=== PATIENT | female | born 1935 | race Caucasian/White ===

== ENCOUNTER 2016-07-20 15:07 | Inpatient (IN) | payer OTHER, MEDICARE ==
[2016-07-20 15:36] VITALS: BMI 29.0
[2016-07-20] MEDS ORDERED: SODIUM CHLORIDE 1,000 ML IV STA (15:38)
--- NOTE | 2016-07-20 15:40 | PDOC ---
History of Present Illness - History of Present Illness Initial Comments: 07/20/16 16:31 The patient is a 80 year old female with a past medical hx of CAD s/p stent ( 2013), IBD, Afib, hypertension, hyperlipidemia, stage 3 prolapsed hemorrhoids, UTIs, and interstitial cystitis who presents to the ED from [facility] for evaluation of abdominal pain, and hypotension. She was last seen here on for abdominal pain and was admitted until 06/10 for proctitis. The patient states she has been experiencing chronic abdominal pain with diarrhea since before she was discharged from the hospital. She reports she has not improved since being discharged from the hospital. Patients sister states her blood pressure was 78/47 a few days ago and her legs were retaining water. Patients legs were elevated and her blood pressure increased slightly. Per patients sister, she has been experiencing urinary retention and had a frost placed yesterday.The patient states she has been feeling lousy for 8 months and her sister states she has lost over 30 pounds in five months because her appetite has decreased. The patient states she has been feeling weak and currently participating in PT for her difficulty walking. The patient denies chest pain, SOB, cough, palpitations, headache, dizziness The patient denies nausea/vomiting, melena, hematochezia The patient denies fever, chills Allergies: linaclotide Past surgical history: cholecystectomy (1993) PCP - Dr. Bhatt <Ruma Arora - Last Filed: 07/20/16 16:50> - General History Source: Patient Exam Limitations: No Limitations <Steve Griffiths - Last Filed: 07/25/16 08:53> - General Chief Complaint: Pain Stated Complaint: HYPOTENSION Time Seen by Provider: 07/20/16 15:23 Past History <Ruma Arora - Last Filed: 07/20/16 16:50> - Past Medical History Anemia: No Asthma: No Cancer: No Cardiac Disorders: Yes (CAD) CVA: No COPD: No CHF: No Dementia: No Diabetes: No GI Disorders: Yes (REFLUX, HIATAL HERNIA, /rectal ulcerations/Colitis) Disorders: Yes (INTERSTITIAL CYSTITIS, INCONTINENCE) HTN: Yes (DX 2002) Hypercholesterolemia: Yes (DX 2002) Liver Disease: No Psychiatric Problems: Yes (depression) Seizures: No Thyroid Disease: No - Surgical History Abdominal Surgery: No Cardiac Surgery: Yes (STENT 2013) Cholecystectomy: Yes (LAP [id number] BILE DUCT) GI Surgery: Yes (RECTAL FISTULA) Lung Surgery: No Neurologic Surgery: No Orthopedic Surgery: Yes (LEFT KNEE REPLACEMENT) - Psycho/Social/Smoking Cessation Hx Anxiety: No Suicidal Ideation: No Smoking History: Former smoker Have you smoked in the past 12 months: No Number of Cigarettes Smoked Daily: 60 If you are a former smoker, when did you quit?: YEARS AGO Information on smoking cessation initiated: No Hx Alcohol Use: No Drug/Substance Use Hx: No Substance Use Type: None Hx Substance Use Treatment: No <TundeSteve - Last Filed: 07/25/16 08:53> - Past Medical History Allergies/Adverse Reactions: Allergies Allergy/AdvReac Type Severity Reaction Status Date / Time linaclotide [From Linzess] Allergy Intermediate Severe Verified 07/20/16 15:36 diarrhea Home Medications: Ambulatory Orders Aa/Hydrolyzed Collagen, Whey [Lps Neutral Flavor Liquid] 30 ml PO BID 07/20/16 Acetaminophen [Pain Relief] 650 mg PO QID 07/20/16 Acidoph/L.bulg/Bif.b/S.thermop [Bacid Caplet] 1 each PO BID 07/20/16 Ascorbic Acid [Vitamin C -] 500 mg PO DAILY 07/20/16 Atorvastatin Ca [Lipitor] 10 mg PO HS 07/20/16 Calcium Carbonate/Vitamin D3 [Oyster Shell 500-Vit D3 200 Tb] 1 each PO DAILY Collagenase Clostridium Hist. [Santyl] 1 applic TP BID 07/20/16 Dextran 70/Hypromellose/Pf [Artificial Tears Drops] 1 each OP QID 07/20/16 Ferrous Sulfate [Feosol] 325 mg PO BID 07/20/16 Mesalamine Suppository [Canasa Suppository] 1,000 mg RC HS 07/20/16 Mesalamine [Asacol Hd -] 1,600 mg PO TID 07/20/16 Mirtazapine [Remeron -] 15 mg PO HS 07/20/16 Nystatin Powder [Nystop Topical Powder -] 15 gm TP TID 07/20/16 Tamsulosin HCl [Flomax] 0.4 mg PO DAILY 07/20/16 Review of Systems - Review of Systems Able to Perform ROS?: Yes Comments:: 07/20/16 16:32 CONSTITUTIONAL: +Weakness. No reported: Fever, Chills, Diaphoresis, Malaise, Loss of Appetite HEENT: No reported: Rhinorrhea, Nasal Congestion, Throat Pain, Throat Swelling, Difficulty Swallowing, Mouth Swelling, Ear Pain, Eye Pain, Visual Changes CARDIOVASCULAR: No reported: Chest Pain, Syncope, Palpitations, Irregular Heart Rate, Lightheadedness, Peripheral Edema RESPIRATORY: No reported: Cough, Shortness of Breath, SOB with Exertion, Orthopnea, Wheezing , Stridor, Hemoptysis GASTROINTESTINAL: +Diarrhea, abdominal pain. No reported: Abdominal Distension, Nausea, Vomiting, Constipation, Melena, Hematochezia GENITOURINARY: +Urinary retention. No reported: Dysuria, Frequency, Urgency, Flank Pain, Genital Pain MUSCULOSKELETAL: No reported: Myalgia, Arthralgia, Joint Swelling, Back pain, Neck Pain SKIN: No reported: Rash, Itching, Pallor HEMATOLOGIC/IMMUNOLOGIC: No reported: Easy Bleeding, Easy Bruising, Lymphadenopathy, Frequent infections ENDOCRINE: +30 lb weight loss. No reported: Unexplained Weight Gain, Heat Intolerance, Cold Intolerance NEUROLOGIC: No reported: Headache, Focal Weakness, Paresthesias, Vertigo, Lightheadedness, Unsteady Gait, Seizure, Mental Status Changes, Incontinence PSYCHIATRIC: No reported: Anxiety, Depression <Ruma Arora - Last Filed: 07/20/16 16:50> *Physical Exam - Vital Signs Last Vital Signs Temp Pulse Resp BP Pulse Ox 97.6 F 88 24 106/80 92 L 07/20/16 15:23 07/20/16 15:23 07/20/16 15:23 07/20/16 15:23 07/20/16 15:23 - Physical Exam Comments: 07/20/16 16:11 GENERAL: The patient is awake, alert, and fully oriented, Nontoxic - in no acute distress. HEAD: Normocephalic, atraumatic. EYES: extraocular movements intact, sclera anicteric, conjunctiva clear. ENT: Normal voice,Moist mucous membranes. NECK: Normal range of motion, supple LUNGS: Breath sounds equal, clear to auscultation bilaterally. No wheezes, no rhonchi, no rales. HEART: Regular rate and rhythm, normal S1 and S2 without murmur, rub or gallop. ABDOMEN: slightly distended, diffusely tender to palpation EXTREMITIES:b/l pitting edmea on LE, no erythema, induration, warmth, no calf tenderness NEUROLOGICAL: No facial assymetry, Normal speech, PSYCH: Normal mood, normal affect. SKIN: Warm, Dry, normal turgor, <Ruma Arora - Last Filed: 07/20/16 16:50> - Vital Signs Last Vital Signs Temp Pulse Resp BP Pulse Ox 97.6 F 88 24 106/80 92 L 07/20/16 15:23 07/20/16 15:23 07/20/16 15:23 07/20/16 15:23 07/20/16 15:23 <Steve Griffiths - Last Filed: 07/25/16 08:53> Heart Score/ECG Review - ECG Impressions Comment:: 07/20/16 16:29 Twelve-lead EKG was performed and reviewed by me. Irregularly irregular Rate of 111 <Steve Griffiths - Last Filed: 07/25/16 08:53> ED Treatment Course - LABORATORY CBC & Chemistry Diagram: 07/20/16 15:44 07/20/16 15:44 <Ruma Arora - Last Filed: 07/20/16 16:50> - LABORATORY CBC & Chemistry Diagram: 07/23/16 10:15 07/23/16 10:15 - RADIOLOGY Radiology Studies Ordered: Category Date Time Status CHEST X-RAY PORTABLE* [RAD] Stat Radiology 07/20/16 15:38 Ordered <Steve Griffiths - Last Filed: 07/25/16 08:53> Medical Decision Making - Medical Decision Making 07/20/16 15:40 80y F hx CAD s/p stent (2013), IBD, Afib, hypertension, hyperlipidemia, stage 3 prolapsed hemorrhoids, UTIs, and interstitial cystitis, sent by [facility] for evaluation of hypotension. The pts BP was low 70/40s - sent to ED for evaluation - on presentation pts BP improved to 106/80. pts complaining of abd pain and diarrhea, not significantly different from previous hospitalization, but also endorsed urinary retrention and had a frost placed. on exam pt has b/ l pitting edmea in LE as well as diffuse tenderness to the abdomen. will give gentle hydration for bp, bp improved from NH but still not at baseline. pt afebrile here, but will r/o sources of infection will discuss with PMD A portion of this note was documented by scribe services under my direction. I have reviewed the details of the note, within reason, and agree with the documentation with the following case summary and management plan written by me 07/20/16 17:49 The case was signed out to dr. chahal to fu with results and reasesss the patient. <Steve Griffiths - Last Filed: 07/25/16 08:53> *DC/Admit/Observation/Transfer - Attestations Scribe Attestion: 07/20/16 16:11 Documentation prepared by Ruma Arora, acting as bilingual medical receptionist for Steve Griffiths MD, /DO. <Ruma Arora - Last Filed: 07/20/16 16:50> <Steve Griffiths - Last Filed: 07/25/16 08:53> Diagnosis at time of Disposition: UTI (urinary tract infection), Proctitis, Hypotension - Referrals
[2016-07-20 16:26] LABS: BASOPHIL 0.4 % (0-2.0); EOSINOPHIL 1.6 % (0-4.5); MCH 29.7 pg (25.7-33.7); MCHC 33.5 g/dl (32.0-36.0); MEAN CELL VOLUME 88.6 fl (80-96); NEUTROPHILS 65.6 % (42.8-82.8); PLATELET COUNT 464 K/MM3 (134-434); WHITE BLOOD COUNT 7.4 K/mm3 (4.0-10.0)
[2016-07-20 16:40] LABS: URINE APPEARANCE CLOUDY; URINE BILIRUBIN NEGATIVE (NEGATIVE); URINE COLOR AMBER; URINE GLUCOSE (UA) NEGATIVE (NEGATIVE); URINE KETONE NEGATIVE (NEGATIVE); URINE NITRITE NEGATIVE (NEGATIVE); URINE UROBILINOGEN NEGATIVE E.U./dl (0.2-1.0)
[2016-07-20 16:42] LABS: URINE BLOOD 1+ (NEGATIVE); URINE LEUK ESTERASE 3+ (NEGATIVE); URINE PROTEIN 2+ (NEGATIVE)
[2016-07-20 16:48] LABS: INR 1.28 (0.82-1.09); PROTHROMBIN TIME (PATIENT) 14.2 SEC (9.98-11.88); URINE BACTERIA MODERATE /hpf (NONE SEEN); URINE RBC 117 /hpf (0-3); URINE WBC 1229 /hpf (3-5); YEAST RARE
[2016-07-20 16:49] LABS: VENOUS BLOOD GAS HCO3 21.9 meq/L (22-29); VENOUS PH 7.38 (7.31-7.41)
[2016-07-20 16:51] LABS: ACTIVATED PTT 34.4 SECONDS (26.9-34.4)
[2016-07-20 17:11] LABS: ALBUMIN 1.4 g/dl (3.4-5.0); ANION GAP 11 (8-16); BILIRUBIN,TOTAL 0.3 mg/dL (0.2-1.0); CALCIUM 7.7 mg/dL (8.5-10.1); CO2 23 mmol/L (21-32); CREATININE 0.8 mg/dL (0.55-1.02); GLUCOSE,RANDOM 95 mg/dL (74-106); SGPT/ALT 40 U/L (12-78); TOT PROT 5.7 g/dl (6.4-8.2)
[2016-07-20 17:13] LABS: ALK PHOS 196 U/L (45-117); TROPONIN I < 0.02 ng/ml (0.00-0.05)
[2016-07-20 17:29] LABS: SGOT/AST 49 U/L (15-37)
[2016-07-20] MEDS ORDERED: SULFAMETHOXAZOLE/TRIMETHOPRIM 800MG/160MG D.S. TABLET PO ONE (17:41)
[2016-07-20] MEDS ORDERED: SULFAMETHOXAZOLE/TRIMETHOPRIM 800MG/160MG D.S. TABLET ONE (18:10)
[2016-07-20] MEDS ORDERED: GENTAMICIN INJECTION 80 MG in DEXTROSE 5%-WATER - 250 ML IVPB SCH (19:30)
[2016-07-20] MEDS ORDERED: GENTAMICIN 80 MG PREMIXED IVPB 100 ML IVPB ONE (19:53)
--- NOTE | 2016-07-20 20:06 | PDOC ---
*Physical Exam - Vital Signs Last Vital Signs Temp Pulse Resp BP Pulse Ox 97.6 F 103 H 24 78/55 98 07/20/16 15:23 07/20/16 19:20 07/20/16 19:20 07/20/16 19:20 07/20/16 19:20 ED Treatment Course - LABORATORY CBC & Chemistry Diagram: 07/20/16 15:44 07/20/16 15:44 - ADDITIONAL ORDERS Additional order review: Laboratory Results 07/20/16 07/20/16 07/20/16 18:45 16:21 15:44 INR PTT (Actin FS) VBG pH 7.38 POC VBG pCO2 37.6 L POC VBG pO2 27.4 L Sodium Potassium Chloride Carbon Dioxide Anion Gap BUN Creatinine Creat Clearance w eGFR Random Glucose Lactic Acid 1.590 Calcium Total Bilirubin AST ALT Alkaline Phosphatase Creatine Kinase Troponin I Total Protein Albumin Urine Color Urine Appearance Urine pH Ur Specific Webster Urine Protein Urine Glucose (UA) Urine Ketones Urine Blood Urine Nitrite Urine Bilirubin Urine Urobilinogen Ur Leukocyte Esterase Urine RBC Urine WBC Ur Epithelial Cells Urine Bacteria Urine Yeast Blood Type Cancelled Antibody Screen Cancelled Spec Expiration Date Cancelled 07/20/16 07/20/16 07/20/16 15:44 15:44 15:44 INR PTT (Actin FS) VBG pH POC VBG pCO2 POC VBG pO2 Sodium 136 Potassium 4.4 Chloride 102 D Carbon Dioxide 23 Anion Gap 11 BUN 22 H D Creatinine 0.8 Creat Clearance w eGFR Y Random Glucose 95 D Lactic Acid 2.127 H* Calcium 7.7 L Total Bilirubin 0.3 AST 49 H D ALT 40 D Alkaline Phosphatase 196 H D Creatine Kinase 87 Troponin I < 0.02 Total Protein 5.7 L Albumin 1.4 L Urine Color Rachael Urine Appearance Cloudy Urine pH 5.0 Ur Specific Webster 1.020 Urine Protein 2+ H Urine Glucose (UA) Negative Urine Ketones Negative Urine Blood 1+ H Urine Nitrite Negative Urine Bilirubin Negative Urine Urobilinogen Negative Ur Leukocyte Esterase 3+ H Urine RBC 117 Urine WBC 1229 Ur Epithelial Cells Rare Urine Bacteria Moderate Urine Yeast Rare Blood Type Antibody Screen Spec Expiration Date 07/20/16 15:44 INR 1.28 H PTT (Actin FS) 34.4 VBG pH POC VBG pCO2 POC VBG pO2 Sodium Potassium Chloride Carbon Dioxide Anion Gap BUN Creatinine Creat Clearance w eGFR Random Glucose Lactic Acid Calcium Total Bilirubin AST ALT Alkaline Phosphatase Creatine Kinase Troponin I Total Protein Albumin Urine Color Urine Appearance Urine pH Ur Specific Webster Urine Protein Urine Glucose (UA) Urine Ketones Urine Blood Urine Nitrite Urine Bilirubin Urine Urobilinogen Ur Leukocyte Esterase Urine RBC Urine WBC Ur Epithelial Cells Urine Bacteria Urine Yeast Blood Type Antibody Screen Spec Expiration Date 07/20/16 15:44 RBC 3.65 MCV 88.6 MCHC 33.5 RDW 17.0 H D MPV 7.0 L Neutrophils % 65.6 Lymphocytes % 20.5 D Monocytes % 11.9 H Eosinophils % 1.6 Basophils % 0.4 - RADIOLOGY Radiology Studies Ordered: Category Date Time Status ABDOMEN & PELVIS CT WITH CONTR [CT] Stat CT Scan 07/20/16 17:40 Completed - Medications Given in the ED: ED Medications Discontinued Medications Generic Name Dose Route Start Last Admin Trade Name Freq PRN Reason Stop Dose Admin Sodium Chloride 1,000 mls @ 1,000 mls/hr 07/20/16 15:38 07/20/16 16:35 Normal Saline - IV 07/20/16 16:37 1,000 mls/hr ASDIR STA Administration Trimethoprim/Sulfamethoxazole 1 each 07/20/16 17:41 07/20/16 18:45 Bactrim Ds - PO 07/20/16 17:42 1 each ONCE ONE Administration Medical Decision Making - Critical Care Time Total Critical Care Time (minutes): 120 Critical Care Statement: The care of this patient involved high complexity decision making to prevent further life threatening deterioration of the patient 's condition and/or to evalute & treat vital organ system(s) failure or risk of failure. - Medical Decision Making 07/20/16 20:06 80-year-old female brought in By ambulance from [facility] for hypotension. Patient is alert and conversant. She has a past medical history of hypertension, hyperlipidemia, irritable bowel disease, GI bleed, bilateral hydronephrosis, interstitial cystitis, anemia The long-term stated that she has some urinary retention, so they periodically have been putting in a Briones as needed. Reviewing her old medical records. 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 Bhatt who admitted the patient to [facility] *DC/Admit/Observation/Transfer Diagnosis at time of Disposition: Proctitis UTI (urinary tract infection) Qualifiers: Urinary tract infection type: acute cystitis Hematuria presence: without hematuria Qualified Code(s): N30.00 - Acute cystitis without hematuria Hypotension Qualifiers: Hypotension type: other hypotension type Qualified Code(s): I95.89 - Other hypotension - Discharge Dispostion Admit: Yes - Referrals Referrals: Holden Bhatt MD [Primary Care Provider] - - Patient Instructions - Post Discharge Activity
[2016-07-20] MEDS ORDERED: ACETAMINOPHEN 325 MG TABLET (FP) PO PRN ×2 (21:32→21:35)
[2016-07-20] MEDS ORDERED: ARTIFICIAL TEARS (POLYVINYL ALCOHOL 1.4%) OPTH DROPS OU PRN (21:35)
[2016-07-20] MEDS ORDERED: PATIENT'S OWN MEDICATION (NON-FORMULARY) (Aa/Hydrolyzed Collagen, Whey [Lps Neutral Flavor PO SCH (22:00)
[2016-07-21] MEDS: D5-1/2NS+20 MEQ KCL - 1,000 ML IV SCH ×2 (02:30→21:30)
[2016-07-21] MEDS: HEPARIN NA (PORCINE) 5,000 UNITS/ML 1ML VIAL SQ SCH ×3 (03:05→21:29)
[2016-07-21] MEDS: MIRTAZAPINE 15 MG TABLET (FP) PO SCH ×2 (03:06→21:29)
[2016-07-21] MEDS: ATORVASTATIN CA 10 MG TABLET (FP) PO SCH ×2 (03:06→21:29)
[2016-07-21 08:02] LABS: BASOPHIL 0.9 % (0-2.0); EOSINOPHIL 1.4 % (0-4.5); MCH 29.6 pg (25.7-33.7); MCHC 33.4 g/dl (32.0-36.0); MEAN CELL VOLUME 88.7 fl (80-96); MEAN PLT VOLUME 6.9 fl (7.5-11.1); NEUTROPHILS 63.4 % (42.8-82.8); PLATELET COUNT 329 K/MM3 (134-434); RDW 16.6 % (11.6-15.6); WHITE BLOOD COUNT 6.3 K/mm3 (4.0-10.0)
[2016-07-21 08:18] LABS: ALBUMIN 1.1 g/dl (3.4-5.0); ANION GAP 8 (8-16); CO2 21 mmol/L (21-32); CREATININE 0.6 mg/dL (0.55-1.02); GLUCOSE,RANDOM 70 mg/dL (74-106); SGOT/AST 32 U/L (15-37); SGPT/ALT 32 U/L (12-78)
[2016-07-21 08:20] LABS: ALK PHOS 160 U/L (45-117); BILIRUBIN,TOTAL 0.4 mg/dL (0.2-1.0); TOT PROT 4.2 g/dl (6.4-8.2)
[2016-07-21] MEDS: MESALAMINE 800 MG TABLET.DR PO SCH ×4 (08:45→21:30)
[2016-07-21] MEDS: MESALAMINE 1000 MG/SUPP.RECT SUPP RC SCH ×2 (08:45→21:30)
[2016-07-21] MEDS: LACTOBACILLUS ACIDOPHILUS 1 EACH TAB (FP) PO SCH ×3 (08:45→21:29)
[2016-07-21] MEDS: NYSTATIN POWDER 100,000 UNITS/GM - 15 GM TOPICAL POWDER TP SCH ×4 (08:46→21:30)
[2016-07-21] MEDS: FERROUS SO4 325 MG TABLET (FP) PO SCH ×3 (08:49→21:30)
[2016-07-21] MEDS: COLLAGENASE CLOSTRIDIUM HIST. 30 GRAMS TUBE TP SCH ×3 (08:49→21:30)
--- NOTE | 2016-07-21 08:59 | PN ---
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
[2016-07-21] MEDS ORDERED: PNEUMOC 13-VAL CONJ-DIP CRM/PF 0.5 ML DISP.SYRIN IM ONE (09:00)
--- NOTE | 2016-07-21 09:33 | HP ---
Admitting History and Physical - Admission History of Present Illness: 80 year old female with a past medical hx of CAD s/p stent (2013), IBD, Afib, hypertension, hyperlipidemia, stage 3 prolapsed hemorrhoids, UTIs, and interstitial cystitis who presents to the ED from [facility] for evaluation of abdominal pain, and hypotension. She was last seen here on 05/20/16 for abdominal pain and was admitted until 06/10 for proctitis. The patient states she has been experiencing chronic abdominal pain with diarrhea since before she was discharged from the hospital. She reports she has not improved since being discharged from the hospital. Patients sister states her blood pressure was 78/ 47 a few days ago and her legs were retaining water. Patients legs were elevated and her blood pressure increased slightly. Per patients sister, she has been experiencing urinary retention and had a frost placed yesterday.The patient states she has been feeling lousy for 8 months and her sister states she has lost over 30 pounds in five months because her appetite has decreased. The patient states she has been feeling weak and currently participating in PT for her difficulty walking. - Past Medical History [employer]: Yes: Other ([employer]?) Cardiovascular: Yes: CAD, HTN, Hyperlipdemia Gastrointestinal: Yes: GI Bleed, Irritable Bowel Disease, Other (diarrehea Stercoral colitis) Renal/: Yes: Other ([place] bladder B/L hydroureteronephrosis Interstitial cystitis) Heme/Onc: Yes: Anemia Infectious Disease: Yes: Other (Urosepsis due to Klebsiella(ESBL)) - Past Surgical History Past Surgical History: Yes: Cholecystectomy - Smoking History Smoking history: Former smoker Have you smoked in the past 12 months: No Aproximately how many cigarettes per day: 60 If you are a former smoker, when did you quit?: YEARS AGO - Alcohol/Substance Use Hx Alcohol Use: No - Social History ADL: Independent History of Recent Travel: Yes ([place] 11/16) Home Medications - Allergies Allergies/Adverse Reactions: Allergies Allergy/AdvReac Type Severity Reaction Status Date / Time linaclotide [From Linzess] Allergy Intermediate Severe Verified 07/20/16 15:36 diarrhea - Home Medications Home Medications: Ambulatory Orders Aa/Hydrolyzed Collagen, Whey [Lps Neutral Flavor Liquid] 30 ml PO BID 07/20/16 Acetaminophen [Pain Relief] 650 mg PO QID 07/20/16 Acidoph/L.bulg/Bif.b/S.thermop [Bacid Caplet] 1 each PO BID 07/20/16 Ascorbic Acid [Vitamin C -] 500 mg PO DAILY 07/20/16 Atorvastatin Ca [Lipitor] 10 mg PO HS 07/20/16 Calcium Carbonate/Vitamin D3 [Oyster Shell 500-Vit D3 200 Tb] 1 each PO DAILY Collagenase Clostridium Hist. [Santyl] 1 applic TP BID 07/20/16 Dextran 70/Hypromellose/Pf [Artificial Tears Drops] 1 each OP QID 07/20/16 Ferrous Sulfate [Feosol] 325 mg PO BID 07/20/16 Mesalamine Suppository [Canasa Suppository] 1,000 mg RC HS 07/20/16 Mesalamine [Asacol Hd -] 1,600 mg PO TID 07/20/16 Mirtazapine [Remeron -] 15 mg PO HS 07/20/16 Nystatin Powder [Nystop Topical Powder -] 15 gm TP TID 07/20/16 Tamsulosin HCl [Flomax] 0.4 mg PO DAILY 07/20/16 Family Disease History - Family Disease History Family Disease History: CA: Father (colon), Sister (colon) Review of Systems - Review of Systems Cardiovascular: denies: Chest Pain, Palpitations Respiratory: denies: SOB Gastrointestinal: reports: Bloating, Diarrhea Neurological: denies: Change in LOC, Change in Speech Physical Examination Vital Signs: Vital Signs Temperature 98 F 07/21/16 05:32 Pulse Rate 97 H 07/21/16 05:32 Respiratory Rate 20 07/21/16 05:32 Blood Pressure 100/59 07/21/16 05:32 O2 Sat by Pulse Oximetry (%) 99 07/20/16 20:22 Cardiovascular: Yes: Regular Rate and Rhythm Respiratory: Yes: Regular, CTA Bilaterally Gastrointestinal: Yes: Normal Bowel Sounds, Soft, Tenderness (LOWER ABDOMINAL AREA) Labs: CBC, BMP 07/21/16 07:30 07/21/16 07:30 Imaging - Results Cat Scan: Report Reviewed (PROCTITIS) Problem List - Problems (1) Hypotension Assessment/Plan: R/O GI BLEED VS SEPSIS IVF IV ABX ID AND GI CONSULT Code(s): I95.9 - HYPOTENSION, UNSPECIFIED Qualifiers: Hypotension type: other hypotension type Qualified Code(s): I95.89 - Other hypotension (2) Proctitis Assessment/Plan: CONTINUE WIT ASACOL GI Code(s): K62.89 - OTHER SPECIFIED DISEASES OF ANUS AND RECTUM (3) A-fib Code(s): I48.91 - UNSPECIFIED ATRIAL FIBRILLATION (4) Anemia Assessment/Plan: MONITOR IF FURTHER DROP MAY NEED TRANSFUSION Code(s): D64.9 - ANEMIA, UNSPECIFIED (5) IBD (inflammatory bowel disease) Assessment/Plan: ASACOL AND GI Code(s): K63.89 - OTHER SPECIFIED DISEASES OF INTESTINE
--- NOTE | 2016-07-21 09:45 | CONS ---
DATE OF CONSULTATION: DATE OF DICTATION: 07/21/2016 HISTORY OF PRESENT ILLNESS: This is a 80-year-old woman complicated past medical history. She has had multiple recent admissions to the hospital. She was here from February 18 to March 19, again admitted in April, again in May, at which time she was in the hospital from May 20 until June 10. At that time, she was diagnosed all the CAT scans have shown that she has proctitis. She has had multiple evaluations for C. difficile that have been negative. She was treated ultimately with steroids and Flagyl and discharged to the [facility], where she reports that she has had continued abdominal discomfort, which she states at baseline. She has had chronic weight loss and she was sent from the [facility] to the hospital because she was noted yesterday to have urinary retention and a low blood pressure. Blood pressure was recorded at 81/57. She was having difficulty voiding. A Briones catheter was placed and she had over 400 mL of urine and it was left in place. She was transferred to the hospital. She currently is quite sleepy and not willing to talk, but she notes she has chronic abdominal pain that is unchanged. She has no fevers, no chills. No nausea or vomiting. She reports about 2 bowel movements a day. She denies any nausea or vomiting and she says her appetite is its baseline. Of note, she had a Klebsiella CRE in her urine in May and she was given gentamicin and fluids and Bactrim in the emergency room. I am asked to see her for follow up for UTI. PAST MEDICAL HISTORY: Her past medical history is notable for chronic abdominal pain. She has had severe stercoral ulceration in the past, which was felt to be secondary to severe fecal impaction. She has as well a history of intermittent urinary retention. In September of 2015, she underwent cystoscopy and bladder denervation with Botox. 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 ALLERGIES: She is allergic to LINZESS. PAST SURGICAL HISTORY: Her past surgical history is notable for laparoscopic cholecystectomy with complicating perforated bile duct. She has history of coronary stents and left knee replacement. SOCIAL HISTORY: She is residing at the halfway, former smoker. No history of any substance. FAMILY HISTORY: Noncontributory. MEDICATIONS: Her medications at the halfway include Asacol 800 mg 2 tablets t.i.d., Canasa rectal suppository nightly, Feosol. She is on nutritional supplements, calcium with vitamin D, multivitamins, vitamin C, Flomax, Bacid, Atorvastatin, Remeron. PHYSICAL EXAMINATION: General: She is awake and alert, in no acute distress. Vitals: Temperature is 98, blood pressure is 100/59, pulse 97, respiratory rate is 20. Her weight is 144. HEENT: She was normocephalic. Her eyes are anicteric. Neck: Supple. Lungs: Clear to auscultation. Heart: Regular rate and rhythm. Abdomen: Soft, nontender. Extremities: She has trace pitting edema of her flanks and her lower extremities. White count is 6.3, hemoglobin 8.4, platelets are 329. INR is 1.2. BUN is 18 and creatinine is 0.6. Alkaline phosphatase is 160. Urinalysis has 3+ leukocyte esterase with 1229 white cells. Urine and blood cultures are pending. CAT scan of the abdomen and pelvis reveals mild rectal wall thickening. 1. In summary, this is a 80-year-old woman admitted with hypotension, urinary retention. A Briones was placed at the halfway. Cannot rule out sepsis, secondary to urinary tract infection at this time with urinary retention, hypotension, pyuria, elevated lactic acid 2.1. She was given Bactrim and gentamicin and started on fluids. I would suggest continuing gentamicin at this time and following up her cultures. 2. History of chronic proctitis as per gastroenterology. 3. Strict contact isolation with dedicated equipment, given the history of CRE. Will follow up on cultures and make further recommendations. Would follow gentamicin levels as well. KEV MCGOVERN M.D. [id number]
[2016-07-21] MEDS ORDERED: PT OWN MED DRAWER 7, Y5N ONE ×6 (10:23→21:19)
[2016-07-21] MEDS: TAMSULOSIN HCL 0.4 MG CAP.ER.24H (FP) PO SCH (10:55)
[2016-07-21] MEDS: CALCIUM 500MG/VIT-D 200 UNITS COMBO TABLET (FP) PO SCH (10:55)
[2016-07-21] MEDS: ASCORBIC ACID 500 MG TABLET (FP) PO SCH (10:55)
[2016-07-21] MEDS: GENTAMICIN INJECTION 120 MG in SODIUM CHLORIDE 100 ML IVPB SCH (10:57)
[2016-07-21 14:15] LABS: BASOPHIL 0.6 % (0-2.0); EOSINOPHIL 2.1 % (0-4.5); MCH 29.3 pg (25.7-33.7); MCHC 32.8 g/dl (32.0-36.0); MEAN CELL VOLUME 89.4 fl (80-96); MEAN PLT VOLUME 6.7 fl (7.5-11.1); NEUTROPHILS 62.1 % (42.8-82.8); PLATELET COUNT 363 K/MM3 (134-434); RDW 16.9 % (11.6-15.6); WHITE BLOOD COUNT 6.6 K/mm3 (4.0-10.0)
--- NOTE | 2016-07-21 19:03 | PN ---
Progress Note (short form) - Note Progress Note: consult dictated
--- NOTE | 2016-07-21 20:36 | CONS ---
DATE OF CONSULTATION: DATE OF DICTATION: 07/21/2016 REQUESTING PHYSICIAN: Holden Bhatt M.D. HISTORY OF PRESENT ILLNESS: Patient is a 80-year-old female admitted from the shelter. She was sent from the shelter for evaluation of urinary retention and a low blood pressure. The blood pressure was recorded at 81/57. She is having difficulty voiding, and a Briones catheter was placed. She had over 400 mL of urine after Briones catheter was placed. She was transferred for further evaluation. She states that I have seen her in the past for diarrhea. She has had an extensive workup and treatment plans including treatment for possible inflammatory bowel disease which was with IV steroids but that did not help alleviate her symptoms. She has been, and this was in May of 2000, and I suspected that she has had stercoral proctitis leading to her loose bowel movements and tenesmus, and she had had a CT enterography on her last admission that was not consistent with small bowel Crohn's. She does have a history of bladder dysfunction which is suspected to be secondary to a Botox injection. She also had severe stercoral ulceration that was diagnosed in February of 2016 that was felt to be secondary to severe fecal impaction secondary to her fecal retention. This was diagnosed via flexible sigmoidoscopy. She underwent a repeat flexible sigmoidoscopy early in May of 2016, that showed improvement of the proctitis, and retroflex view showed a possible small sinus tract. Colorectal surgeon Dr. Nitesh Kim has evaluated her in the past and has been trying to avoid surgery, as I felt that if her diarrhea did not improve, a diverting colostomy would be the next surgical option. PAST MEDICAL HISTORY: Includes coronary artery disease, hypertension, history of overactive bladder, anal fissure with surgical intervention, cholecystectomy, stercoral proctitis, she has had intermittent diarrhea, she has had multiple stool studies including C. difficile studies that were unrevealing including C. difficile toxin PCR. SOCIAL HISTORY: She resides in a shelter. No recent travels. She is a former smoker. No history of intravenous drug abuse, other illicit drugs. No history of alcohol use. MEDICATION: Current medications prior to admission include Nystop topical powder, Remeron, Santyl, artificial tears, Lipitor, Bacid, Flomax, vitamin C, Canasa suppositories, ferrous sulfate, and Asacol 800 mg p.o. t.i.d. REVIEW OF SYSTEMS: She denies any chest pain or shortness of breath, no repeated fevers, no rectal bleeding, no overt diarrhea reported. She does have about 2 bowel movements per day per the patient, and per nursing today she did have a large bowel movement which she described as semi-formed. PHYSICAL EXAMINATION: General: The patient is found lying in her bed, she appeared to be in no apparent distress. Vital signs: Temperature 99, pulse 108, blood pressure 103/54. HEENT: Sclerae are anicteric. Neck: Supple. Cardiovascular: Tachycardic rate with a regular rhythm. No murmurs appreciated . Lungs: Clear to auscultation bilaterally. Abdomen: Nondistended. Normoactive bowel sounds. No hepatosplenomegaly was appreciated. No mass was palpated. No hernia detected. She did have tenderness to palpation in the pelvis. Extremities: Trace lower extremity edema. Rectal: Digital rectal exam, she had indurated anal canal. She had had a bowel movement, the stool was semi-formed and soft. There is no mass in the rectal vaults appreciated. RADIOLOGY REPORTS: CT scan of the abdomen and pelvis revealed mild concentric rectal wall thickening with associated mild perirectal soft tissue edema, and also a 2 x 1 cm peripheral wedge-shaped left lower lobe, pulmonary opacity, question the small infiltrate or scarring, as well as resolved small bilateral pleural effusions. Taking a look at the CAT scan, it did appear as though she had retained formed stool in the rectal vault. IMPRESSION: This is a 75-year-old woman, complicated medical course with chronic urinary retention, along with diarrhea. Given the CT scan findings, I question if she has intermittent chronic fecal retention as was thought that led to her initial stercoral colitis, but now which never really has a chance to heal. She is being evaluated by infectious disease given her urinary retention, and she has been put on antibiotics per infectious disease. We did discuss the possibility of a flexible sigmoidoscopy to reevaluate her proctitis, and we did discuss potential risks of the procedure like but not limited to bleeding, perforation requiring surgery to repair, infection, sedation/medication effects, all of which can be potentially life-threatening. She has agreed to it. She was not amenable to at her last visit. Other recommendations will be made pending the above. I thank you for this consultative opportunity. WES DACOSTA DO [id number]
[2016-07-22 00:09] LABS: URINE APPEARANCE SLCLOUDY; URINE BILIRUBIN NEGATIVE (NEGATIVE); URINE COLOR YELLOW; URINE GLUCOSE (UA) NEGATIVE (NEGATIVE); URINE KETONE NEGATIVE (NEGATIVE); URINE NITRITE NEGATIVE (NEGATIVE); URINE UROBILINOGEN NEGATIVE E.U./dl (0.2-1.0)
[2016-07-22 00:16] LABS: URINE BLOOD 3+ (NEGATIVE); URINE LEUK ESTERASE 1+ (NEGATIVE); URINE PROTEIN 1+ (NEGATIVE)
[2016-07-22 00:22] LABS: URINE BACTERIA RARE /hpf (NONE SEEN); URINE RBC 3562 /hpf (0-3); URINE WBC 234 /hpf (3-5)
[2016-07-22] MEDS: D5-1/2NS+20 MEQ KCL - 1,000 ML IV SCH ×2 (05:11→21:42)
[2016-07-22] MEDS: MESALAMINE 800 MG TABLET.DR PO SCH ×3 (05:11→21:49)
[2016-07-22] MEDS: NYSTATIN POWDER 100,000 UNITS/GM - 15 GM TOPICAL POWDER TP SCH ×3 (05:12→21:48)
[2016-07-22 07:25] LABS: BASOPHIL 0.4 % (0-2.0); EOSINOPHIL 1.8 % (0-4.5); MCH 29.5 pg (25.7-33.7); MCHC 33.2 g/dl (32.0-36.0); MEAN PLT VOLUME 7.2 fl (7.5-11.1); NEUTROPHILS 55.2 % (42.8-82.8); PLATELET COUNT 408 K/MM3 (134-434); RDW 17.1 % (11.6-15.6)
[2016-07-22 07:31] LABS: ALBUMIN 1.1 g/dl (3.4-5.0); ANION GAP 7 (8-16); CO2 20 mmol/L (21-32); CREATININE 0.6 mg/dL (0.55-1.02); GLUCOSE,RANDOM 66 mg/dL (74-106); SGOT/AST 44 U/L (15-37); SGPT/ALT 36 U/L (12-78)
[2016-07-22 07:33] LABS: ALK PHOS 167 U/L (45-117); BILIRUBIN,TOTAL 0.4 mg/dL (0.2-1.0); CALCIUM 7.2 mg/dL (8.5-10.1); TOT PROT 4.3 g/dl (6.4-8.2)
--- NOTE | 2016-07-22 08:34 | PN ---
Progress Note, Physician - Current Medication List Current Medications: Active Medications Acetaminophen (Tylenol -) 650 mg PO Q4H PRN PRN Reason: FEVER OR PAIN Artificial Tears (Artificial Tears) 1 drop OU QID PRN PRN Reason: DRY EYES Ascorbic Acid (Vitamin C -) 500 mg PO DAILY [facility] Last Admin: 07/21/16 10:55 Dose: 500 mg Atorvastatin Calcium (Lipitor -) 10 mg PO HS [facility] Last Admin: 07/21/16 21:29 Dose: 10 mg Calcium Carbonate/Cholecalciferol (Os-Dieudonne 500+D -) 1 tab PO DAILY [facility] Last Admin: 07/21/16 10:55 Dose: 1 tab Collagenase (Santyl -) 1 applic TP BID [facility] Last Admin: 07/21/16 21:30 Dose: 1 applic Ferrous Sulfate (Feosol -) 325 mg PO BID [facility] Last Admin: 07/21/16 21:30 Dose: 325 mg Heparin Sodium (Porcine) (Heparin -) 5,000 unit SQ BID [facility] Last Admin: 07/21/16 21:29 Dose: 5,000 unit Potassium Chloride/Dextrose/Sod Cl (D5-1/2ns+20 Meq Kcl -) 1,000 mls @ 75 mls/ hr IV ASDIR [facility] Last Admin: 07/22/16 05:11 Dose: 75 mls/hr Gentamicin Sulfate 120 mg/ (Sodium Chloride) 103 mls @ 100 mls/hr IVPB DAILY [facility] Last Admin: 07/21/16 10:57 Dose: 100 mls/hr Lactobacillus Acidophilus (Bacid -) 1 tab PO BID [facility] Last Admin: 07/21/16 21:29 Dose: 1 tab Mesalamine (Canasa Suppository -) 1,000 mg [facility] Last Admin: 07/21/16 21:30 Dose: Not Given Mesalamine (Asacol Hd -) 1,600 mg PO TID [facility] Last Admin: 07/22/16 05:11 Dose: 1,600 mg Mirtazapine (Remeron -) 15 mg PO [facility] Last Admin: 07/21/16 21:29 Dose: 15 mg Nystatin (Nystop Powder -) 1 applic TP TID [facility] Last Admin: 07/22/16 05:12 Dose: 1 applic Tamsulosin HCl (Flomax -) 0.4 mg PO DAILY [facility] Last Admin: 07/21/16 10:55 Dose: 0.4 mg - Objective Vital Signs: Vital Signs Temperature 98.3 F 07/22/16 06:00 Pulse Rate 103 H 07/22/16 06:00 Respiratory Rate 20 07/22/16 06:00 Blood Pressure 101/58 07/22/16 06:00 O2 Sat by Pulse Oximetry (%) 96 07/21/16 21:00 Cardiovascular: Yes: Regular Rate and Rhythm Respiratory: Yes: Diminished, Rhonchi Gastrointestinal: Yes: Normal Bowel Sounds, Soft Edema: No Labs: CBC, BMP 07/22/16 05:35 07/22/16 05:35 INR, PTT INR 1.28 (0.82-1.09) H 07/20/16 15:44 Problem List - Problems (1) Hypotension Assessment/Plan: IMPROVED R/O GI BLEED VS SEPSIS IVF IV ABX ID AND GI CONSULT Code(s): I95.9 - HYPOTENSION, UNSPECIFIED Qualifiers: Hypotension type: other hypotension type Qualified Code(s): I95.89 - Other hypotension (2) Proctitis Assessment/Plan: CONTINUE WIT ASACOL GI Code(s): K62.89 - OTHER SPECIFIED DISEASES OF ANUS AND RECTUM (3) A-fib Code(s): I48.91 - UNSPECIFIED ATRIAL FIBRILLATION (4) Anemia Assessment/Plan: MONITOR IF FURTHER DROP MAY NEED TRANSFUSION Code(s): D64.9 - ANEMIA, UNSPECIFIED (5) IBD (inflammatory bowel disease) Assessment/Plan: ASACOL AND GI Code(s): K63.89 - OTHER SPECIFIED DISEASES OF INTESTINE
--- NOTE | 2016-07-22 09:11 | PN ---
Progress Note (short form) - Note Progress Note: matt get urology evaluation as she has been on oxybutinin tid no relief then started on flomax still has urianry retetnion everytime the frost is removed
--- NOTE | 2016-07-22 10:38 | PN ---
Progress Note (short form) - Note Progress Note: flex sig report in front of physical chart and to be scanned into [employer]. Patient was hypotensive therefore anesthesia could not be given. she tolerated the exam only to the distal rectum. Mucosal evaluation could not be performed as there was retained stool
[2016-07-22] MEDS: TAMSULOSIN HCL 0.4 MG CAP.ER.24H (FP) PO SCH (11:09)
[2016-07-22] MEDS: FERROUS SO4 325 MG TABLET (FP) PO SCH ×2 (11:09→21:42)
[2016-07-22] MEDS: CALCIUM 500MG/VIT-D 200 UNITS COMBO TABLET (FP) PO SCH (11:09)
[2016-07-22] MEDS: ASCORBIC ACID 500 MG TABLET (FP) PO SCH (11:09)
[2016-07-22] MEDS: COLLAGENASE CLOSTRIDIUM HIST. 30 GRAMS TUBE TP SCH ×2 (11:09→21:49)
[2016-07-22] MEDS: LACTOBACILLUS ACIDOPHILUS 1 EACH TAB (FP) PO SCH ×2 (11:09→21:42)
[2016-07-22] MEDS: GENTAMICIN INJECTION 120 MG in SODIUM CHLORIDE 100 ML IVPB SCH (12:06)
--- NOTE | 2016-07-22 16:12 | PN ---
Progress Note (short form) - Note Progress Note: resting comfortably chronic abdominal discomfort unsuccessful flex sig Vital Signs Period Temp Pulse Resp BP Sys/Chandler Pulse Ox Last 24 Hr 97.5 F-99.0 F 103-109 20-20 101-112/48-62 96-96 cor-rrr lung clear abd soft,nt frost ext no edema CBC, BMP 07/22/16 05:35 07/22/16 05:35 Microbiology 07/20/16 15:44 Urine - Urine Clean Catch Urine Culture - Preliminary Staphylococcus Latex Coag Pos 07/20/16 16:00 Blood - Peripheral Venous Blood Culture - Preliminary NO GROWTH OBTAINED AFTER 24 HOURS, INCUBATION TO CONTINUE FOR 4 DAYS. a/p pyuria/urinary retention hypotension- imprpved chronic proctitis switch to vancomycin, d/c gentamicin urine culture with staph
--- NOTE | 2016-07-22 17:02 | EKG ---
Test Reason : Blood Pressure : / mmHG Vent. Rate : 111 BPM Atrial Rate : 110 BPM P-R Int : 000 ms QRS Dur : 066 ms QT Int : 320 ms P-R-T Axes : 000 -02 025 degrees QTc Int : 435 ms POOR DATA QUALITY, INTERPRETATION MAY BE ADVERSELY AFFECTED ATRIAL FIBRILLATION WITH RAPID VENTRICULAR RESPONSE LOW VOLTAGE QRS POSSIBLE INFERIOR INFARCT (CITED ON OR BEFORE 20-MAY-2016) CANNOT RULE OUT ANTERIOR INFARCT , AGE UNDETERMINED ABNORMAL ECG WHEN COMPARED WITH ECG OF 20-MAY-2016 00:54, ATRIAL FIBRILLATION HAS REPLACED SINUS RHYTHM Confirmed by STEPHANIE UDPREE MD ([id number]) on 07/22/2016 5:02:20 PM Referred By: Confirmed By:STEPHANIE DUPREE MD
[2016-07-22] MEDS: VANCOMYCIN 1 GRAM (PRE-DOCKED) 1,000 MG/250 ML BAG IVPB SCH (18:00)
[2016-07-22] MEDS ORDERED: PT OWN MED DRAWER 7, Y5N ONE (21:36)
[2016-07-22] MEDS: MIRTAZAPINE 15 MG TABLET (FP) PO SCH (21:42)
[2016-07-22] MEDS: ATORVASTATIN CA 10 MG TABLET (FP) PO SCH (21:42)
[2016-07-22] MEDS: MESALAMINE 1000 MG/SUPP.RECT SUPP RC SCH (21:49)
[2016-07-23] MEDS: MESALAMINE 800 MG TABLET.DR PO SCH ×3 (05:14→21:59)
[2016-07-23] MEDS: NYSTATIN POWDER 100,000 UNITS/GM - 15 GM TOPICAL POWDER TP SCH ×3 (05:14→22:12)
[2016-07-23] MEDS: ASCORBIC ACID 500 MG TABLET (FP) PO SCH (10:55)
[2016-07-23] MEDS: TAMSULOSIN HCL 0.4 MG CAP.ER.24H (FP) PO SCH (10:55)
[2016-07-23] MEDS: LACTOBACILLUS ACIDOPHILUS 1 EACH TAB (FP) PO SCH ×2 (10:55→21:58)
[2016-07-23] MEDS: VANCOMYCIN 1 GRAM (PRE-DOCKED) 1,000 MG/250 ML BAG IVPB SCH (10:55)
[2016-07-23] MEDS: COLLAGENASE CLOSTRIDIUM HIST. 30 GRAMS TUBE TP SCH ×2 (10:56→22:12)
[2016-07-23] MEDS: FERROUS SO4 325 MG TABLET (FP) PO SCH ×2 (10:56→21:57)
[2016-07-23] MEDS: CALCIUM 500MG/VIT-D 200 UNITS COMBO TABLET (FP) PO SCH (10:56)
[2016-07-23 11:18] LABS: BASOPHIL 0.5 % (0-2.0); EOSINOPHIL 2.1 % (0-4.5); MCH 29.6 pg (25.7-33.7); MEAN CELL VOLUME 89.7 fl (80-96); NEUTROPHILS 66.5 % (42.8-82.8); PLATELET COUNT 385 K/MM3 (134-434); RDW 16.8 % (11.6-15.6); WHITE BLOOD COUNT 7.7 K/mm3 (4.0-10.0)
[2016-07-23 11:22] LABS: ANION GAP 8 (8-16); BILIRUBIN,TOTAL 0.3 mg/dL (0.2-1.0); CALCIUM 7.1 mg/dL (8.5-10.1); CO2 21 mmol/L (21-32); CREATININE 0.6 mg/dL (0.55-1.02); GLUCOSE,RANDOM 85 mg/dL (74-106); SGOT/AST 53 U/L (15-37); SGPT/ALT 39 U/L (12-78); TOT PROT 4.4 g/dl (6.4-8.2)
[2016-07-23 11:23] LABS: ALK PHOS 174 U/L (45-117)
--- NOTE | 2016-07-23 11:57 | PN ---
Progress Note, Physician - Current Medication List Current Medications: Active Medications Acetaminophen (Tylenol -) 650 mg PO Q4H PRN PRN Reason: FEVER OR PAIN Artificial Tears (Artificial Tears) 1 drop OU QID PRN PRN Reason: DRY EYES Ascorbic Acid (Vitamin C -) 500 mg PO DAILY [facility] Last Admin: 07/23/16 10:55 Dose: 500 mg Atorvastatin Calcium (Lipitor -) 10 mg PO HS [facility] Last Admin: 07/22/16 21:42 Dose: 10 mg Calcium Carbonate/Cholecalciferol (Os-Dieudonne 500+D -) 1 tab PO DAILY [facility] Last Admin: 07/23/16 10:56 Dose: 1 tab Collagenase (Santyl -) 1 applic TP BID [facility] Last Admin: 07/23/16 10:56 Dose: 1 applic Ferrous Sulfate (Feosol -) 325 mg PO BID [facility] Last Admin: 07/23/16 10:56 Dose: 325 mg Heparin Sodium (Porcine) (Heparin -) 5,000 unit SQ BID [facility] Last Admin: 07/21/16 21:29 Dose: 5,000 unit Lactobacillus Acidophilus (Bacid -) 1 tab PO BID [facility] Last Admin: 07/23/16 10:55 Dose: 1 tab Mesalamine (Canasa Suppository -) 1,000 mg RC [facility] Last Admin: 07/22/16 21:49 Dose: 1,000 mg Mesalamine (Asacol Hd -) 1,600 mg PO TID [facility] Last Admin: 07/23/16 05:14 Dose: Not Given Mirtazapine (Remeron -) 15 mg PO HS [facility] Last Admin: 07/22/16 21:42 Dose: 15 mg Nystatin (Nystop Powder -) 1 applic TP TID [facility] Last Admin: 07/23/16 05:14 Dose: Not Given Tamsulosin HCl (Flomax -) 0.4 mg PO DAILY [facility] Last Admin: 07/23/16 10:55 Dose: 0.4 mg Vancomycin HCl (Vancomycin (Pre-Docked)) 1,000 mg IVPB DAILY [facility] Last Admin: 07/23/16 10:55 Dose: 1,000 mg - Objective Vital Signs: Vital Signs Temperature 98.3 F 07/23/16 06:00 Pulse Rate 20 L 07/23/16 06:00 Respiratory Rate 73 H 07/23/16 06:00 Blood Pressure 107/54 07/23/16 06:00 O2 Sat by Pulse Oximetry (%) 96 07/22/16 21:00 Cardiovascular: Yes: S1, S2 Respiratory: Yes: Regular, CTA Bilaterally Gastrointestinal: Yes: Normal Bowel Sounds, Soft Labs: CBC, BMP 07/23/16 10:15 07/23/16 10:15 INR, PTT INR 1.28 (0.82-1.09) H 07/20/16 15:44 Problem List - Problems (1) Hypotension Assessment/Plan: IMPROVED R/O GI BLEED VS SEPSIS DC IVF IV ABX ID AND GI CONSULT Code(s): I95.9 - HYPOTENSION, UNSPECIFIED Qualifiers: Hypotension type: other hypotension type Qualified Code(s): I95.89 - Other hypotension (2) Proctitis Assessment/Plan: CONTINUE WIT ASACOL GI Code(s): K62.89 - OTHER SPECIFIED DISEASES OF ANUS AND RECTUM (3) A-fib Code(s): I48.91 - UNSPECIFIED ATRIAL FIBRILLATION (4) Anemia Assessment/Plan: MONITOR IF FURTHER DROP MAY NEED TRANSFUSION Code(s): D64.9 - ANEMIA, UNSPECIFIED (5) IBD (inflammatory bowel disease) Assessment/Plan: ASACOL AND GI Code(s): K63.89 - OTHER SPECIFIED DISEASES OF INTESTINE
--- NOTE | 2016-07-23 17:01 | PN ---
Progress Note (short form) - Note Progress Note: no new complaints continues to eat poorly, intermittent loose bm unchanged Vital Signs Period Temp Pulse Resp BP Sys/Chandler Pulse Ox Last 24 Hr 98.1 F-98.5 F 84-124 18-89 97-136/49-83 96-96 cor-rrr lungs clear abd soft,nt ext trace edema CBC, BMP 07/23/16 10:15 07/23/16 10:15 Microbiology 07/20/16 16:00 Blood - Peripheral Venous Blood Culture - Preliminary NO GROWTH OBTAINED AFTER 72 HOURS, INCUBATION TO CONTINUE FOR 2 DAYS. 07/20/16 15:44 Urine - Urine Clean Catch Urine Culture - Final Mr S Aureus a/p MRSA uti- continue vancomycin, bp is improving, can change to po bactrim when ready for discharge urology consult pending for urinary retention chronic proctitis-
[2016-07-23] MEDS ORDERED: PT OWN MED DRAWER 7, Y5N ONE (21:16)
[2016-07-23] MEDS: MIRTAZAPINE 15 MG TABLET (FP) PO SCH (21:58)
[2016-07-23] MEDS: ATORVASTATIN CA 10 MG TABLET (FP) PO SCH (21:58)
[2016-07-23] MEDS: MESALAMINE 1000 MG/SUPP.RECT SUPP RC SCH (21:59)
[2016-07-24] MEDS ORDERED: PT OWN MED DRAWER 7, Y5N ONE ×2 (05:54→10:02)
[2016-07-24] MEDS: MESALAMINE 800 MG TABLET.DR PO SCH ×3 (05:58→22:54)
[2016-07-24] MEDS: NYSTATIN POWDER 100,000 UNITS/GM - 15 GM TOPICAL POWDER TP SCH ×3 (06:12→23:13)
[2016-07-24] MEDS: LACTOBACILLUS ACIDOPHILUS 1 EACH TAB (FP) PO SCH ×2 (10:34→22:51)
[2016-07-24] MEDS: CALCIUM 500MG/VIT-D 200 UNITS COMBO TABLET (FP) PO SCH (10:35)
[2016-07-24] MEDS: FERROUS SO4 325 MG TABLET (FP) PO SCH ×2 (10:35→22:51)
[2016-07-24] MEDS: TAMSULOSIN HCL 0.4 MG CAP.ER.24H (FP) PO SCH (10:35)
[2016-07-24] MEDS: ASCORBIC ACID 500 MG TABLET (FP) PO SCH (10:35)
[2016-07-24] MEDS: VANCOMYCIN 1 GRAM (PRE-DOCKED) 1,000 MG/250 ML BAG IVPB SCH (10:35)
[2016-07-24] MEDS: COLLAGENASE CLOSTRIDIUM HIST. 30 GRAMS TUBE TP SCH ×2 (10:35→23:13)
--- NOTE | 2016-07-24 15:43 | PN ---
Progress Note, Physician Chief Complaint: THIS IS MY FIRST MEDICAL ENCOUNTER WITH THIS PATIENT CHART AND EVENTS REVIEWED AWAKE, AGITATED AND UPSET OVER HER DIARRHEA - Current Medication List Current Medications: Active Medications Acetaminophen (Tylenol -) 650 mg PO Q4H PRN PRN Reason: FEVER OR PAIN Artificial Tears (Artificial Tears) 1 drop OU QID PRN PRN Reason: DRY EYES Ascorbic Acid (Vitamin C -) 500 mg PO DAILY [facility] Last Admin: 07/24/16 10:35 Dose: 500 mg Atorvastatin Calcium (Lipitor -) 10 mg PO HS [facility] Last Admin: 07/23/16 21:58 Dose: 10 mg Calcium Carbonate/Cholecalciferol (Os-Dieudonne 500+D -) 1 tab PO DAILY [facility] Last Admin: 07/24/16 10:35 Dose: 1 tab Collagenase (Santyl -) 1 applic TP BID [facility] Last Admin: 07/24/16 10:35 Dose: 1 applic Ferrous Sulfate (Feosol -) 325 mg PO BID [facility] Last Admin: 07/24/16 10:35 Dose: 325 mg Heparin Sodium (Porcine) (Heparin -) 5,000 unit SQ BID [facility] Last Admin: 07/21/16 21:29 Dose: 5,000 unit Lactobacillus Acidophilus (Bacid -) 1 tab PO BID [facility] Last Admin: 07/24/16 10:34 Dose: 1 tab Mesalamine (Canasa Suppository -) 1,000 mg RC HS [facility] Last Admin: 07/23/16 21:59 Dose: 1,000 mg Mesalamine (Asacol Hd -) 1,600 mg PO TID [facility] Last Admin: 07/24/16 15:27 Dose: 1,600 mg Mirtazapine (Remeron -) 15 mg PO HS [facility] Last Admin: 07/23/16 21:58 Dose: 15 mg Nystatin (Nystop Powder -) 1 applic TP TID [facility] Last Admin: 07/24/16 15:27 Dose: 1 applic Tamsulosin HCl (Flomax -) 0.4 mg PO DAILY [facility] Last Admin: 07/24/16 10:35 Dose: 0.4 mg Vancomycin HCl (Vancomycin (Pre-Docked)) 1,000 mg IVPB DAILY [facility] Last Admin: 07/24/16 10:35 Dose: 1,000 mg - Objective Vital Signs: Vital Signs Temperature 98.0 F 07/24/16 09:00 Pulse Rate 99 H 07/24/16 09:00 Respiratory Rate 18 07/24/16 09:00 Blood Pressure 96/56 07/24/16 09:00 O2 Sat by Pulse Oximetry (%) 98 07/24/16 09:00 Constitutional: Yes: Mild Distress Eyes: Yes: WNL HENT: Yes: WNL Neck: Yes: WNL Cardiovascular: Yes: Pulse Irregular Respiratory: Yes: WNL Gastrointestinal: Yes: Tenderness Musculoskeletal: Yes: Muscle Weakness Extremities: Yes: WNL Edema: No Peripheral Pulses WNL: Yes Integumentary: Yes: WNL Wound/Incision: Yes: Clean/Dry Neurological: Yes: Pre-Existing Deficit ...Motor Strength: LLE, RLE Psychiatric: Yes: Agitated Labs: CBC, BMP 07/23/16 10:15 07/23/16 10:15 INR, PTT INR 1.28 (0.82-1.09) H 07/20/16 15:44 Problem List - Problems (1) Hypotension Code(s): I95.9 - HYPOTENSION, UNSPECIFIED Qualifiers: Hypotension type: other hypotension type Qualified Code(s): I95.89 - Other hypotension (2) IBD (inflammatory bowel disease) Code(s): K63.89 - OTHER SPECIFIED DISEASES OF INTESTINE (3) Proctitis Code(s): K62.89 - OTHER SPECIFIED DISEASES OF ANUS AND RECTUM (4) UTI (urinary tract infection) Code(s): N39.0 - URINARY TRACT INFECTION, SITE NOT SPECIFIED Qualifiers: Urinary tract infection type: acute cystitis Hematuria presence: without hematuria Qualified Code(s): N30.00 - Acute cystitis without hematuria (5) A-fib Code(s): I48.91 - UNSPECIFIED ATRIAL FIBRILLATION (6) Abdominal pain Code(s): R10.9 - UNSPECIFIED ABDOMINAL PAIN Qualifiers: Abdominal location: generalized Qualified Code(s): R10.84 - Generalized abdominal pain (7) Altered mental state Code(s): R41.82 - ALTERED MENTAL STATUS, UNSPECIFIED (8) Anemia Code(s): D64.9 - ANEMIA, UNSPECIFIED Assessment/Plan VANCO PO CULTURES PENDING GI EVAL IVF ANTIDEPRESSANTS CONTINUED AVOID PRUNE JUICE WHICH SHE IS DRINKING LACTOBACILLIS STARTED ID FOLLOW UP
[2016-07-24] MEDS: MIRTAZAPINE 15 MG TABLET (FP) PO SCH (22:51)
[2016-07-24] MEDS: ATORVASTATIN CA 10 MG TABLET (FP) PO SCH (22:51)
[2016-07-24] MEDS: MESALAMINE 1000 MG/SUPP.RECT SUPP RC SCH (22:54)
[2016-07-25] MEDS ORDERED: PT OWN MED DRAWER 7, Y5N ONE ×2 (05:27→20:43)
[2016-07-25] MEDS: metroNIDAZOLE 250 MG TABLET PO SCH ×3 (05:31→21:09)
[2016-07-25] MEDS: MESALAMINE 800 MG TABLET.DR PO SCH ×3 (05:32→21:08)
[2016-07-25] MEDS: NYSTATIN POWDER 100,000 UNITS/GM - 15 GM TOPICAL POWDER TP SCH ×3 (05:35→21:09)
--- NOTE | 2016-07-25 10:15 | PN ---
GI Progress Note Subjective: States feeling "so so" 2-3 soft BM;s per day per nursing No abdominal pain - Objective Vital Signs: Vital Signs Temperature 98.8 F 07/25/16 06:00 Pulse Rate 94 H 07/25/16 06:00 Respiratory Rate 18 07/25/16 06:00 Blood Pressure 121/67 07/25/16 06:00 O2 Sat by Pulse Oximetry (%) 97 07/24/16 21:00 Constitutional: Calm Eyes: No: Sclera Icterus Cardiovascular: Yes: Pulse Irregular (regular rate) Respiratory: Yes: Diminished Gastrointestinal Inspection: No: Distention ...Auscultate: Yes: Normoactive Bowel Sounds ...Palpate: Yes: Tenderness (pelvis) Labs: CBC, BMP 07/23/16 10:15 07/23/16 10:15 INR, PTT INR 1.28 (0.82-1.09) H 07/20/16 15:44 Hepatic Panel Total Bilirubin 0.3 mg/dL (0.2-1.0) D 07/23/16 10:15 AST 53 U/L (15-37) H D 07/23/16 10:15 ALT 39 U/L (12-78) 07/23/16 10:15 Alkaline Phosphatase 174 U/L (45-117) H 07/23/16 10:15 Albumin 1.0 g/dl (3.4-5.0) L 07/23/16 10:15 Problem List - Problems (1) Proctitis Assessment/Plan: Suspected secondary to fecal retention Copious stool noted on flex sig. Suspect that there has been compromise of rectal accomodation with intermittent fecal retention / overflow incontinence along with her urinary retention. ? if her previous botox therapy to her bladder played a role Would stop asacol HD can continue canasa suppository 1 BID for 1 more month Code(s): K62.89 - OTHER SPECIFIED DISEASES OF ANUS AND RECTUM (2) Abnormal liver function test Assessment/Plan: No RUQ TTP on exam Check RUQ US Hepatitis A/B/C serologies Code(s): R79.89 - OTHER SPECIFIED ABNORMAL FINDINGS OF BLOOD CHEMISTRY
[2016-07-25] MEDS: CALCIUM 500MG/VIT-D 200 UNITS COMBO TABLET (FP) PO SCH (10:49)
[2016-07-25] MEDS: ASCORBIC ACID 500 MG TABLET (FP) PO SCH (10:49)
[2016-07-25] MEDS: VANCOMYCIN 1 GRAM (PRE-DOCKED) 1,000 MG/250 ML BAG IVPB SCH (10:49)
[2016-07-25] MEDS: FERROUS SO4 325 MG TABLET (FP) PO SCH ×2 (10:49→21:08)
[2016-07-25] MEDS: LACTOBACILLUS ACIDOPHILUS 1 EACH TAB (FP) PO SCH ×2 (10:49→21:08)
[2016-07-25] MEDS: TAMSULOSIN HCL 0.4 MG CAP.ER.24H (FP) PO SCH (10:49)
[2016-07-25] MEDS: COLLAGENASE CLOSTRIDIUM HIST. 30 GRAMS TUBE TP SCH ×2 (10:50→21:09)
--- NOTE | 2016-07-25 11:59 | PN ---
Progress Note, Physician Chief Complaint: ASLEEP COMFORTABLE BOWEL MOVEMENTS IMPROVING LESS DIARRHEA - Current Medication List Current Medications: Active Medications Acetaminophen (Tylenol -) 650 mg PO Q4H PRN PRN Reason: FEVER OR PAIN Artificial Tears (Artificial Tears) 1 drop OU QID PRN PRN Reason: DRY EYES Ascorbic Acid (Vitamin C -) 500 mg PO DAILY [facility] Last Admin: 07/25/16 10:49 Dose: 500 mg Atorvastatin Calcium (Lipitor -) 10 mg PO HS [facility] Last Admin: 07/24/16 22:51 Dose: 10 mg Calcium Carbonate/Cholecalciferol (Os-Dieudonne 500+D -) 1 tab PO DAILY [facility] Last Admin: 07/25/16 10:49 Dose: 1 tab Collagenase (Santyl -) 1 applic TP BID [facility] Last Admin: 07/25/16 10:50 Dose: 1 applic Ferrous Sulfate (Feosol -) 325 mg PO BID [facility] Last Admin: 07/25/16 10:49 Dose: 325 mg Heparin Sodium (Porcine) (Heparin -) 5,000 unit SQ BID [facility] Last Admin: 07/21/16 21:29 Dose: 5,000 unit Lactobacillus Acidophilus (Bacid -) 1 tab PO BID [facility] Last Admin: 07/25/16 10:49 Dose: 1 tab Mesalamine (Canasa Suppository -) 1,000 mg [facility] Last Admin: 07/24/16 22:54 Dose: 1,000 mg Mesalamine (Asacol Hd -) 1,600 mg PO TID [facility] Last Admin: 07/25/16 05:32 Dose: 1,600 mg Metronidazole (Flagyl -) 500 mg PO TID [facility] Last Admin: 07/25/16 05:31 Dose: 500 mg Mirtazapine (Remeron -) 15 mg PO HS [facility] Last Admin: 07/24/16 22:51 Dose: 15 mg Nystatin (Nystop Powder -) 1 applic TP TID [facility] Last Admin: 07/25/16 05:35 Dose: 1 applic Tamsulosin HCl (Flomax -) 0.4 mg PO DAILY [facility] Last Admin: 07/25/16 10:49 Dose: 0.4 mg Vancomycin HCl (Vancomycin (Pre-Docked)) 1,000 mg IVPB DAILY [facility] Last Admin: 07/25/16 10:49 Dose: 1,000 mg - Objective Vital Signs: Vital Signs Temperature 98.3 F 07/25/16 09:00 Pulse Rate 102 H 07/25/16 09:00 Respiratory Rate 20 07/25/16 09:00 Blood Pressure 108/55 07/25/16 09:00 O2 Sat by Pulse Oximetry (%) 97 07/24/16 21:00 Constitutional: Yes: No Distress Eyes: Yes: WNL HENT: Yes: WNL Neck: Yes: WNL Cardiovascular: Yes: WNL Respiratory: Yes: WNL Gastrointestinal: Yes: WNL Genitourinary: Yes: WNL Musculoskeletal: Yes: WNL Extremities: Yes: WNL Edema: No Peripheral Pulses WNL: Yes Integumentary: Yes: WNL Wound/Incision: Yes: Clean/Dry Neurological: Yes: WNL ...Motor Strength: WNL Psychiatric: Yes: Agitated Labs: CBC, BMP 07/23/16 10:15 07/23/16 10:15 INR, PTT INR 1.28 (0.82-1.09) H 07/20/16 15:44 Problem List - Problems (1) Hypotension Code(s): I95.9 - HYPOTENSION, UNSPECIFIED Qualifiers: Hypotension type: other hypotension type Qualified Code(s): I95.89 - Other hypotension (2) IBD (inflammatory bowel disease) Code(s): K63.89 - OTHER SPECIFIED DISEASES OF INTESTINE (3) Proctitis Code(s): K62.89 - OTHER SPECIFIED DISEASES OF ANUS AND RECTUM (4) UTI (urinary tract infection) Code(s): N39.0 - URINARY TRACT INFECTION, SITE NOT SPECIFIED Qualifiers: Urinary tract infection type: acute cystitis Hematuria presence: without hematuria Qualified Code(s): N30.00 - Acute cystitis without hematuria (5) A-fib Code(s): I48.91 - UNSPECIFIED ATRIAL FIBRILLATION (6) Abdominal pain Code(s): R10.9 - UNSPECIFIED ABDOMINAL PAIN Qualifiers: Abdominal location: generalized Qualified Code(s): R10.84 - Generalized abdominal pain (7) Altered mental state Code(s): R41.82 - ALTERED MENTAL STATUS, UNSPECIFIED (8) Anemia Code(s): D64.9 - ANEMIA, UNSPECIFIED Assessment/Plan VANCO PO CULTURES PENDING GI EVAL IVF ANTIDEPRESSANTS CONTINUED AVOID PRUNE JUICE WHICH SHE IS DRINKING LACTOBACILLIS STARTED ID FOLLOW UP
--- NOTE | 2016-07-25 15:50 | CONS ---
DATE OF CONSULTATION: DATE OF DICTATION: 07/25/2016 The patient is a 80-year-old female, well known to me for many years. She presented [facility] the emergency room from [facility] with a history of fever and lethargy and failure to thrive. 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 She presents with urinary frequency, urgency, incontinence, and at times overflow incontinence requiring Briones drainage. She has also had multiple episodes of UTIs with fever and chills. She does have a history of coronary artery disease. She has undergone angioplasty with stent placement in 2013. She has had a history of IBS as well as atrial fibrillation, hypertension, dyslipidemia, severe bleeding stage 3 prolapsed hemorrhoids, again recurrent urinary tract infections, and a possible interstitial cystitis due to a positive cystoscopy in the past, which revealed glomerulation and Hunner's ulcers. Presently she is complaining of abdominal pain and in the [facility] her blood pressure was extremely low. She was admitted to the hospital in early June for the same problem and has recently been discharged. The patient states that she has been experiencing chronic abdominal pain with diarrhea since she was discharged from the hospital. She reports no improvement since being discharged. The patient's sister states that her pressure was 178/47 a few days ago and that her legs were retaining water. The patient's legs were elevated and her blood pressure increased slightly at the [facility]. As per patient, she also states feeling lousy and sickly over the past 8 months and has been deteriorating ever since. She states that she has lost over 30 pounds in the past few months. Her appetite has decreased. The patient states that she is constantly weak, sleepy, lethargic, and has been having difficulty walking, with physical therapy intervention not helping much. She denies shortness of breath, cough and palpitations, headache, vertigo. She denies nausea, vomiting. She denies melena or hematochezia. She does have constant incontinence and wears an adult pamper. The patient is allergic to LINACLOTIDE. She has undergone a cholecystectomy in the s. The patient, besides the history of coronary artery disease, also has a hiatal hernia with gastroesophageal reflux disease and persistent dysphagia and dyspepsia. She has been diagnosed with a chronic colitis and has been having diarrhea and painful perirectal rashes also for the past year. She has been diagnosed with interstitial cystitis. She has also been diagnosed with high blood pressure, dyslipidemia, and depression. She underwent a left knee replacement in the past as well as a rectal fistulotomy. Presently the patient appears to be lethargic and apathetic. She denies use of alcohol or tobacco. She is on multiple medications from the [facility] including hydrolyzed collagen, Tylenol, caplets, vitamin C, atorvastatin, calcium carbonate, as well as vitamin D, collagenase clostridium histolyticum applied b.i.d. to affected area, dextran 70 with hypromellose for artificial tear replacement. She is on iron, multiple rectal suppositories for her proctitis including hydrocortisone rectal suppository, she is on Remeron for sleep, and nystatin powder. The patient also was placed on Flomax for her vesicosphincteric dyssynergia. Presently the patient appears to be weak, she is oriented to time, place and person. Her abdomen is soft. She has a Briones catheter inserted. Her urine is clear. Pelvic in the past revealed atrophic vaginitis with no signs of prolapse. There was no CVA tenderness. In the emergency room, her white count was 7.4, hemoglobin 10.8, hematocrit 32.4, platelets were 464, BUN 11, creatinine 0.6. Random glucose was 85. The patient underwent a CAT scan of her abdomen and pelvis in the emergency room and this basically revealed 2 small 1-cm peripheral wedge-shaped opacities seen in the left lower lobe of the lung. This could be a mild infiltrate or scarring. She also has bilateral renal cysts. The kidneys appear to be atrophic. She also has a small stable adrenal adenoma on the right and on the left side. She has a 3-cm uniloculated splenic cyst. She is status post a cholecystectomy and her liver, pancreas revealed no abnormalities. Presently the patient does have micturition disorder, mostly consisting of a urinary incontinence as well as overflow incontinence. Will continue with Briones catheter until her general condition improves. Urine culture presently reveals no growth. There is no need for any urologic intervention at present. Will follow with you. Rebecca [id number]
[2016-07-25] MEDS: MESALAMINE 1000 MG/SUPP.RECT SUPP RC SCH (21:08)
[2016-07-25] MEDS: ATORVASTATIN CA 10 MG TABLET (FP) PO SCH (21:09)
[2016-07-25] MEDS: MIRTAZAPINE 15 MG TABLET (FP) PO SCH (21:09)
[2016-07-26] MEDS ORDERED: PT OWN MED DRAWER 7, Y5N ONE (05:22)
[2016-07-26] MEDS: MESALAMINE 800 MG TABLET.DR PO SCH (05:35)
[2016-07-26] MEDS: metroNIDAZOLE 250 MG TABLET PO SCH ×2 (05:36→13:42)
[2016-07-26] MEDS: NYSTATIN POWDER 100,000 UNITS/GM - 15 GM TOPICAL POWDER TP SCH ×2 (05:36→13:42)
[2016-07-26 07:11] LABS: BASOPHIL 0.7 % (0-2.0); EOSINOPHIL 2.3 % (0-4.5); MCH 29.9 pg (25.7-33.7); MCHC 33.7 g/dl (32.0-36.0); MEAN CELL VOLUME 88.7 fl (80-96); MEAN PLT VOLUME 6.8 fl (7.5-11.1); NEUTROPHILS 59.3 % (42.8-82.8); PLATELET COUNT 319 K/MM3 (134-434); RDW 16.5 % (11.6-15.6); WHITE BLOOD COUNT 6.2 K/mm3 (4.0-10.0)
[2016-07-26 07:35] LABS: ALBUMIN 1.1 g/dl (3.4-5.0); ANION GAP 8 (8-16); CALCIUM 7.7 mg/dL (8.5-10.1); CO2 21 mmol/L (21-32); CREATININE 0.6 mg/dL (0.55-1.02); GLUCOSE,RANDOM 70 mg/dL (74-106); SGOT/AST 40 U/L (15-37); SGPT/ALT 36 U/L (12-78)
[2016-07-26 07:37] LABS: ALK PHOS 161 U/L (45-117); BILIRUBIN,TOTAL 0.3 mg/dL (0.2-1.0); TOT PROT 4.5 g/dl (6.4-8.2)
--- NOTE | 2016-07-26 09:29 | DS ---
Physical Examination Vital Signs: Vital Signs Temperature 97.3 F L 07/26/16 06:00 Pulse Rate 91 H 07/26/16 06:00 Respiratory Rate 20 07/26/16 06:00 Blood Pressure 107/63 07/26/16 06:00 O2 Sat by Pulse Oximetry (%) 99 07/25/16 21:00 Cardiovascular: Yes: Regular Rate and Rhythm, Varicosities Respiratory: Yes: Regular Gastrointestinal: Yes: Normal Bowel Sounds, Soft Labs: CBC, BMP 07/26/16 05:30 07/26/16 05:30 Discharge Summary Reason For Visit: UTI/ PROCTITIUS/ HYPOTENSION Current Active Problems Abnormal liver function test (Acute) Hypotension (Acute) IBD (inflammatory bowel disease) (Acute) Proctitis (Acute) UTI (urinary tract infection) (Acute) Hospital Course: 80 year old female with a past medical hx of CAD s/p stent (2013), IBD, Afib, hypertension, hyperlipidemia, stage 3 prolapsed hemorrhoids, UTIs, and interstitial cystitis who presents [facility] the [facility] for evaluation of abdominal pain, and hypotension. She was last seen here on 05/20/16 for abdominal pain and was admitted until 06/10 for proctitis. The patient states she has been experiencing chronic abdominal pain with diarrhea since before she was discharged from the hospital. She reports she has not improved since being discharged from the hospital. Patients sister states her blood pressure was 78/ 47 a few days ago and her legs were retaining water. Patients legs were elevated and her blood pressure increased slightly. Per patients sister, she has been experiencing urinary retention and had a frost placed yesterday.The patient states she has been feeling lousy for 8 months and her sister states she has lost over 30 pounds in five months because her appetite has decreased. The patient states she has been feeling weak and currently participating in PT for her difficulty walking. - Past Medical History MANAGER GENERATION: Yes: Other (DEMENTIA?) Cardiovascular: Yes: CAD, HTN, Hyperlipdemia Gastrointestinal: Yes: GI Bleed, Irritable Bowel Disease, Other (diarrehea Stercoral colitis) Renal/: Yes: Other (Aatonic bladder B/L hydroureteronephrosis Interstitial cystitis) Heme/Onc: Yes: Anemia Infectious Disease: Yes: Other (Urosepsis due to Klebsiella(ESBL)) - Past Surgical History Past Surgical History: Yes: Cholecystectomy Problems (1) Hypotension Assessment/Plan: IMPROVED ON PO ID AND GI CONSULT Code(s): I95.9 - HYPOTENSION, UNSPECIFIED Qualifiers: Hypotension type: other hypotension type Qualified Code(s): I95.89 - Other hypotension (2) Proctitis Assessment/Plan: CONTINUE WIT ASACOL GI Code(s): K62.89 - OTHER SPECIFIED DISEASES OF ANUS AND RECTUM (3) A-fib Code(s): I48.91 - UNSPECIFIED ATRIAL FIBRILLATION (4) Anemia Assessment/Plan: MONITOR IF FURTHER DROP MAY NEED TRANSFUSION Code(s): D64.9 - ANEMIA, UNSPECIFIED (5) IBD (inflammatory bowel disease) Assessment/Plan: ' MEDS PER GI Code(s): K63.89 - OTHER SPECIFIED DISEASES OF INTESTINE - Instructions Diet, Activity, Other Instructions: CANASA BID FOR ONE MONTH GI FOLLOW UP WITH DR MENDOZA Referrals: Holden Bhatt MD [Primary Care Provider] - Disposition: HALFWAY FACILITY - Home Medications Comprehensive Discharge Medication List: Ambulatory Orders Aa/Hydrolyzed Collagen, Whey [Lps Neutral Flavor Liquid] 30 ml PO BID 07/20/16 Acetaminophen [Pain Relief] 650 mg PO QID 07/20/16 Acidoph/L.bulg/Bif.b/S.thermop [Bacid Caplet] 1 each PO BID 07/20/16 Ascorbic Acid [Vitamin C -] 500 mg PO DAILY 07/20/16 Atorvastatin Ca [Lipitor] 10 mg PO HS 07/20/16 Calcium Carbonate/Vitamin D3 [Oyster Shell 500-Vit D3 200 Tb] 1 each PO DAILY Collagenase Clostridium Hist. [Santyl -] 1 applic TP BID 07/20/16 Dextran 70/Hypromellose/Pf [Artificial Tears Drops] 1 each OP QID 07/20/16 Ferrous Sulfate [Feosol] 325 mg PO BID 07/20/16 Mirtazapine [Remeron -] 15 mg PO HS 07/20/16 Tamsulosin HCl [Flomax] 0.4 mg PO DAILY 07/20/16 Acetaminophen [Tylenol .Regular Strength -] 650 mg PO Q4H PRN #0 tablet Heparin - 5,000 unit SQ BID vial 07/26/16 Mesalamine Suppository [Canasa Suppository -] 1,000 mg RC BID supp 07/26/16 Metronidazole [Flagyl -] 500 mg PO TID tablet 07/26/16 Nystatin Powder [Nystop Powder -] 1 applic TP TID applic 07/26/16 Sulfamethoxazole/Trimethoprim [Bactrim Ds -] 1 tab PO BID #6 tablet 07/26/16
[2016-07-26] MEDS: VANCOMYCIN 1 GRAM (PRE-DOCKED) 1,000 MG/250 ML BAG IVPB SCH (09:37)
[2016-07-26] MEDS: TAMSULOSIN HCL 0.4 MG CAP.ER.24H (FP) PO SCH (09:38)
[2016-07-26] MEDS: FERROUS SO4 325 MG TABLET (FP) PO SCH (09:38)
[2016-07-26] MEDS: COLLAGENASE CLOSTRIDIUM HIST. 30 GRAMS TUBE TP SCH (09:38)
[2016-07-26] MEDS: CALCIUM 500MG/VIT-D 200 UNITS COMBO TABLET (FP) PO SCH (09:38)
[2016-07-26] MEDS: LACTOBACILLUS ACIDOPHILUS 1 EACH TAB (FP) PO SCH (09:38)
[2016-07-26] MEDS: ASCORBIC ACID 500 MG TABLET (FP) PO SCH (09:38)
[2016-07-26] MEDS ORDERED: MESALAMINE 1000 MG/SUPP.RECT SUPP RC SCH (10:00)
[2016-07-26 15:48] VITALS: BP 115/65; PULSE 98; TEMP 98.2
[2016-07-28 00:07] LABS: HEP B SURFACE AB Reactive (.)
== END 2016-07-26 16:38 | DRG 394 ==
LOC: JER 15:07 → UNDOADMIN 20:27 → JERBED 20:27 → UNDOADMIN 20:53 → JERBED 20:53 → J4S 07-21 01:40
PROVIDERS: ADMIT Family Medicine; ATTEND Family Medicine
PROC: 0DJD8ZZ Inspection of Lower Intestinal Tract, Via Natural or Artificial Opening Endoscopic (ICD-10-PCS; principal; 2016-07-22 10:00)
DX: K62.89 Other specified diseases of anus and rectum (principal); N39.0 Urinary tract infection, site not specified; I25.10 Atherosclerotic heart disease of native coronary artery without angina pectoris; Z95.5 Presence of coronary angioplasty implant and graft; K58.9 Irritable bowel syndrome, unspecified; I48.91 Unspecified atrial fibrillation; E78.5 Hyperlipidemia, unspecified; D64.9 Anemia, unspecified; K21.9 Gastro-esophageal reflux disease without esophagitis; K44.9 Diaphragmatic hernia without obstruction or gangrene; I95.9 Hypotension, unspecified; Z96.652 Presence of left artificial knee joint; R19.7 Diarrhea, unspecified; R33.9 Retention of urine, unspecified; B95.62 Methicillin resistant Staphylococcus aureus infection as the cause of diseases classified elsewhere; K59.09 Other constipation; R45.1 Restlessness and agitation; R26.2 Difficulty in walking, not elsewhere classified
CPT/HCPCS: 36415; 71010-TC; 74177-TC; 76700-TC; 80053; 80170; 81003; 81015; 82550; 82803; 83605; 83735; 84484; 85025; 85610; 85730; 86704; 86706; 86708; 86803; 86850; 86900; 86901; 87040; 87086; 87186; 87324; 87340; 87449; 90670; 93005; 93010; 97116-GP; 97161-GP; 99285-25; J1644

== ENCOUNTER 2016-07-29 19:49 | Inpatient (IN) | payer OTHER, MEDICARE ==
[2016-07-29 20:01] VITALS: BMI 29.0
--- NOTE | 2016-07-29 20:16 | PDOC ---
History of Present Illness - General History Source: Patient <Vasu Reese - Last Filed: 07/29/16 21:19> - General History Source: Patient Exam Limitations: Other - History of Present Illness Initial Comments: 07/29/16 20:59 The patient is a year old female from [facility], with a significant past medical history of CAD s/p stent(2013), Afib, stage 3 prolapsed hemorrhoids , UTIs, interstitial cystitis, hypertension, hyperlipidemia, depression, who presents to the emergency department complaining of lower leg pain. The patient reports the pain is localized more on the right side of her leg than the left. The patient denies any leg swelling, chest pain, diaphoresis, palpitations, or shortness of breath. The patient denies any nausea, vomiting, diarrhea, constipation, or changes in urination patterns. The patient denies fever, chills , cough, headache, and dizziness. The patient denies any recent travel or sick contacts. Allergies: Linaclotide (diarrhea) Past Surgical History: Stent (2013), Rectal fistula, left knee replacement, cholecystectomy(1993) Social History: Former smoker. Denies alcohol or drug use. PCP: Dr. Anjum Bhatti <Katherine Nagy - Last Filed: 07/30/16 01:01> - General Chief Complaint: Revisit,Radiology Variance Stated Complaint: POSITIVE DVT LEFT LEG PER EMS Time Seen by Provider: 07/29/16 20:15 Past History - Past Medical History Anemia: No Asthma: No Cancer: No Cardiac Disorders: Yes (CAD) CVA: No COPD: No CHF: No Dementia: No Diabetes: No GI Disorders: Yes (REFLUX, HIATAL HERNIA, /rectal ulcerations/Colitis) Disorders: Yes (INTERSTITIAL CYSTITIS, INCONTINENCE) HTN: Yes (DX 2002) Hypercholesterolemia: Yes (DX 2002) Liver Disease: No Psychiatric Problems: Yes (depression) Seizures: No Thyroid Disease: No - Surgical History Abdominal Surgery: No Cardiac Surgery: Yes (STENT 2013) Cholecystectomy: Yes (AHSAN [id number] BILE DUCT) GI Surgery: Yes (RECTAL FISTULA) Lung Surgery: No Neurologic Surgery: No Orthopedic Surgery: Yes (LEFT KNEE REPLACEMENT) - Psycho/Social/Smoking Cessation Hx Anxiety: No Suicidal Ideation: No Smoking History: Former smoker Have you smoked in the past 12 months: No Number of Cigarettes Smoked Daily: 60 If you are a former smoker, when did you quit?: YEARS AGO Information on smoking cessation initiated: No Hx Alcohol Use: No Drug/Substance Use Hx: No Substance Use Type: None Hx Substance Use Treatment: No <Vasu Reese - Last Filed: 07/29/16 21:19> <Katherine Nagy - Last Filed: 07/30/16 01:01> - Past Medical History Allergies/Adverse Reactions: Allergies Allergy/AdvReac Type Severity Reaction Status Date / Time linaclotide [From Linzess] Allergy Intermediate Severe Verified 07/20/16 15:36 diarrhea Home Medications: Ambulatory Orders Aa/Hydrolyzed Collagen, Whey [Lps Neutral Flavor Liquid] 30 ml PO BID 07/20/16 Acetaminophen [Pain Relief] 650 mg PO QID 07/20/16 Ascorbic Acid [Vitamin C -] 500 mg PO DAILY 07/20/16 Atorvastatin Ca [Lipitor] 10 mg PO HS 07/20/16 Calcium Carbonate/Vitamin D3 [Oyster Shell 500-Vit D3 200 Tb] 1 each PO DAILY Collagenase Clostridium Hist. [Santyl -] 1 applic TP BID 07/20/16 Dextran 70/Hypromellose/Pf [Artificial Tears Drops] 1 each OP QID 07/20/16 Ferrous Sulfate [Feosol] 325 mg PO BID 07/20/16 Mirtazapine [Remeron -] 15 mg PO HS 07/20/16 Tamsulosin HCl [Flomax] 0.4 mg PO DAILY 07/20/16 Acetaminophen [Tylenol .Regular Strength -] 650 mg PO Q4H PRN #0 tablet Heparin - 5,000 unit SQ BID vial 07/26/16 Mesalamine Suppository [Canasa Suppository -] 1,000 mg RC BID supp 07/26/16 Metronidazole [Flagyl -] 500 mg PO TID tablet 07/26/16 Nystatin Powder [Nystop Powder -] 1 applic TP TID applic 07/26/16 Sulfamethoxazole/Trimethoprim [Bactrim Ds -] 1 tab PO BID #6 tablet 07/26/16 Hypromellose 0.5% Opth Soln [Artificial Tears] 1 drop OU QID 07/29/16 Lactobacillus Acidophilus [Bacid -] 1 each PO BID 07/29/16 Review of Systems - Review of Systems Able to Perform ROS?: Yes Comments:: 07/29/16 20:59 CONSTITUTIONAL: Absent: fever, no chills, no fatigue EYES: Absent: visual changes ENT: Absent: ear pain, no sore throat CARDIOVASCULAR: Absent: chest pain, no palpitations RESPIRATORY: Absent: cough, no SOB GI: Absent: abdominal pain, no nausea, no vomiting, no constipation, no diarrhea GENITOURINARY: Absent: dysuria, no frequency, no hematuria MUSKULOSKELETAL: Present: +leg pain Absent: back pain, no arthralgia SKIN: Absent: rash NEURO: Absent: headache <Katherine Nagy - Last Filed: 07/30/16 01:01> *Physical Exam - Vital Signs Last Vital Signs Temp Pulse Resp BP Pulse Ox 97.8 F 118 H 18 98/58 98 07/29/16 20:00 07/29/16 20:00 07/29/16 20:00 07/29/16 20:00 07/29/16 20:00 <Vasu Reese - Last Filed: 07/29/16 21:19> - Vital Signs Last Vital Signs Temp Pulse Resp BP Pulse Ox 97.8 F 118 H 18 98/58 98 07/29/16 20:00 07/29/16 20:00 07/29/16 20:00 07/29/16 20:00 07/29/16 20:00 - Physical Exam Comments: 07/29/16 21:00 GENERAL: Well-appearing, well-nourished. No apparent distress. HEENT: Normocephalic, atraumatic. PERRL, EOM intact. CARDIOVASCULAR: Normal S1, S2. Regular rate and rhythm. PULMONARY: Clear to auscultation bilaterally. ABDOMEN: Soft, non-distended, non-tender. EXTREMITIES: +1+ pitting edema in ankle and upper calf. +Tenderness to palpation in bilateral lower extremities.Normal ROM in all four extremities. No gross deformities. SKIN: Warm, dry. No rash NEUROLOGICAL: No focal neurological deficits. <Katherine Nagy - Last Filed: 07/30/16 01:01> Heart Score/ECG Review - ECG Impressions Comment:: 07/29/16 22:26 Vent. Rate: 106 bpm IMPRESSION: Atrial fibrillation with rapid ventricular response. Low voltage QRS. <Katherine Nagy - Last Filed: 07/30/16 01:01> ED Treatment Course - RADIOLOGY Radiograph Interpretation: 07/30/16 00:58 EXAM: CXR INTERPRETED BY: Dr. Simmons REVIEWED BY: Dr. Reese IMPRESSION: No acute pathology. EXAM: US/DUPLEX VASCUL US-2LEGS INTERPRETED BY: Dr. Simmons REVIEWED BY: Dr. Reese IMPRESSION: Extensive DVT left lower extremity. <Katherine Nagy - Last Filed: 07/30/16 01:01> Medical Decision Making - Medical Decision Making 07/29/16 21:19 Dr. Reese: The scribe's documentation has been prepared under my direction and personally reviewed by me in its entirery. I confirm that the note above accurately reflects all work, treatment, procedures, and medical decision making performed by me. <Vasu Reese - Last Filed: 07/29/16 21:19> *DC/Admit/Observation/Transfer - Discharge Dispostion Admit: Yes <Vasu Reese - Last Filed: 07/29/16 21:19> - Attestations Scribe Attestion: 07/29/16 21:02 Documentation prepared by Katherine Nagy, acting as medical assisting program director for Vasu Reese DO. <Katherine Nagy - Last Filed: 07/30/16 01:01> Diagnosis at time of Disposition: Left leg DVT - Referrals
[2016-07-29] MEDS ORDERED: ACETAMINOPHEN 325 MG TABLET (FP) PO PRN (21:27)
[2016-07-29] MEDS ORDERED: SODIUM CHLORIDE 1,000 ML IV STA (21:34)
[2016-07-29] MEDS ORDERED: PATIENT'S OWN MEDICATION (NON-FORMULARY) (Hypromellose 0.5% Opth Soln [Artificial Tears] 1 OU SCH (22:00)
[2016-07-29] MEDS ORDERED: metroNIDAZOLE 250 MG TABLET PO SCH (22:00)
[2016-07-29] MEDS ORDERED: SULFAMETHOXAZOLE/TRIMETHOPRIM 800MG/160MG D.S. TABLET PO SCH (22:00)
[2016-07-30 02:52] LABS: BASOPHIL 0.9 % (0-2.0); EOSINOPHIL 1.7 % (0-4.5); MCH 29.6 pg (25.7-33.7); MCHC 32.9 g/dl (32.0-36.0); MEAN CELL VOLUME 89.8 fl (80-96); MEAN PLT VOLUME 7.3 fl (7.5-11.1); NEUTROPHILS 58.1 % (42.8-82.8); PLATELET COUNT 350 K/MM3 (134-434); RDW 16.9 % (11.6-15.6); WHITE BLOOD COUNT 8.7 K/mm3 (4.0-10.0)
[2016-07-30 03:10] LABS: INR 1.47 (0.82-1.09); PROTHROMBIN TIME (PATIENT) 16.3 SEC (9.98-11.88)
[2016-07-30 03:18] LABS: ALBUMIN 1.2 g/dl (3.4-5.0); BILIRUBIN,TOTAL 0.2 mg/dL (0.2-1.0); CALCIUM 8.2 mg/dL (8.5-10.1); TOT PROT 4.7 g/dl (6.4-8.2)
[2016-07-30] MEDS: ENOXAPARIN NA (PORCINE) 60 MG/0.6 ML DISP.SYRIN SQ SCH ×3 (03:28→21:37)
[2016-07-30] MEDS ORDERED: ENOXAPARIN NA (PORCINE) 60 MG/0.6 ML DISP.SYRIN SQ ONE ×2 (03:29→11:00)
[2016-07-30] MEDS ORDERED: metroNIDAZOLE 250 MG TABLET PO SCH (06:00)
[2016-07-30 06:33] LABS: BASOPHIL 0.8 % (0-2.0); EOSINOPHIL 1.9 % (0-4.5); MCH 29.6 pg (25.7-33.7); MEAN CELL VOLUME 89.6 fl (80-96); MEAN PLT VOLUME 7.1 fl (7.5-11.1); PLATELET COUNT 347 K/MM3 (134-434); RDW 16.9 % (11.6-15.6); WHITE BLOOD COUNT 7.9 K/mm3 (4.0-10.0)
[2016-07-30 06:37] LABS: INR 1.55 (0.82-1.09); PROTHROMBIN TIME (PATIENT) 17.2 SEC (9.98-11.88)
[2016-07-30 06:50] LABS: ALBUMIN 1.2 g/dl (3.4-5.0); ALK PHOS 149 U/L (45-117); ANION GAP 10 (8-16); BILIRUBIN,TOTAL 0.2 mg/dL (0.2-1.0); CALCIUM 7.7 mg/dL (8.5-10.1); CO2 19 mmol/L (21-32); CREATININE 0.9 mg/dL (0.55-1.02); GLUCOSE,RANDOM 66 mg/dL (74-106); SGOT/AST 29 U/L (15-37); SGPT/ALT 26 U/L (12-78); TOT PROT 4.8 g/dl (6.4-8.2)
[2016-07-30] MEDS: MESALAMINE 1000 MG/SUPP.RECT SUPP RC SCH ×3 (08:49→21:36)
[2016-07-30] MEDS: ARTIFICIAL TEARS (POLYVINYL ALCOHOL 1.4%) OPTH DROPS OU SCH ×5 (08:49→21:35)
[2016-07-30] MEDS: FERROUS SO4 325 MG TABLET (FP) PO SCH ×3 (08:49→21:36)
[2016-07-30] MEDS: LACTOBACILLUS ACIDOPHILUS 1 EACH TAB (FP) PO SCH ×3 (08:49→21:36)
[2016-07-30] MEDS: COLLAGENASE CLOSTRIDIUM HIST. 30 GRAMS TUBE TP SCH ×3 (08:50→21:36)
[2016-07-30] MEDS: ATORVASTATIN CA 10 MG TABLET (FP) PO SCH ×2 (08:50→21:36)
[2016-07-30] MEDS: NYSTATIN POWDER 100,000 UNITS/GM - 15 GM TOPICAL POWDER TP SCH ×3 (08:50→21:38)
[2016-07-30] MEDS: MIRTAZAPINE 15 MG TABLET (FP) PO SCH ×2 (08:50→21:36)
[2016-07-30] MEDS ORDERED: SULFAMETHOXAZOLE/TRIMETHOPRIM 800MG/160MG D.S. TABLET PO SCH (10:00)
--- NOTE | 2016-07-30 10:03 | EKG ---
Test Reason : Blood Pressure : / mmHG Vent. Rate : 106 BPM Atrial Rate : 133 BPM P-R Int : 000 ms QRS Dur : 070 ms QT Int : 348 ms P-R-T Axes : 000 000 020 degrees QTc Int : 462 ms POOR DATA QUALITY, INTERPRETATION MAY BE ADVERSELY AFFECTED SINUS TACHYCARDIA WITH FREQUENT PREMATURE ATRIAL COMPLEXES LOW VOLTAGE QRS NONSPECIFIC ST ABNORMALITY ABNORMAL ECG Confirmed by NATALYA PERSAUD MD ([id number]) on 07/30/2016 10:02:56 AM Referred By: Confirmed By:NATALYA PERSAUD MD
--- NOTE | 2016-07-30 10:33 | HP ---
Admitting History and Physical - Primary Care Physician PCP: Holden Bhatt - Admission History of Present Illness: The patient is a year old female from [facility], with a significant past medical history of CAD s/p stent(2013), stage 3 prolapsed hemorrhoids, UTIs , interstitial cystitis, hypertension, hyperlipidemia, depression, who presents to the emergency department complaining of lower leg pain. i saw patient in [facility] yesterday and noticed new swelling of both legs and asked stat doppler in ER dopple showed extensive dvt in left leg The patient reports the pain is localized more on the right side of her leg than the left. The patient denies any leg swelling, chest pain, diaphoresis, palpitations, or shortness of breath. The patient denies any nausea, vomiting, diarrhea, constipation, or changes in urination patterns. The patient denies fever, chills, cough, headache, and dizziness. The patient denies any recent travel or sick contacts. 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: Other (DEMENTIA?) Cardiovascular: Yes: CAD, HTN, Hyperlipdemia Gastrointestinal: Yes: GI Bleed, Irritable Bowel Disease, Other (diarrehea Stercoral colitis) Renal/: Yes: Other (Aatonic bladder B/L hydroureteronephrosis Interstitial cystitis) Heme/Onc: Yes: Anemia Infectious Disease: Yes: Other (Urosepsis due to Klebsiella(ESBL)) - Past Surgical History Past Surgical History: Yes: Cholecystectomy - Smoking History Smoking history: Former smoker Have you smoked in the past 12 months: No Aproximately how many cigarettes per day: 60 If you are a former smoker, when did you quit?: YEARS AGO - Alcohol/Substance Use Hx Alcohol Use: No - Social History ADL: Independent History of Recent Travel: Yes ([place] 11/16) Home Medications - Allergies Allergies/Adverse Reactions: Allergies Allergy/AdvReac Type Severity Reaction Status Date / Time linaclotide [From Linzess] Allergy Intermediate Severe Verified 07/20/16 15:36 diarrhea - Home Medications Home Medications: Ambulatory Orders Aa/Hydrolyzed Collagen, Whey [Lps Neutral Flavor Liquid] 30 ml PO BID 07/20/16 Acetaminophen [Pain Relief] 650 mg PO QID 07/20/16 Ascorbic Acid [Vitamin C -] 500 mg PO DAILY 07/20/16 Atorvastatin Ca [Lipitor] 10 mg PO HS 07/20/16 Calcium Carbonate/Vitamin D3 [Oyster Shell 500-Vit D3 200 Tb] 1 each PO DAILY Collagenase Clostridium Hist. [Santyl -] 1 applic TP BID 07/20/16 Dextran 70/Hypromellose/Pf [Artificial Tears Drops] 1 each OP QID 07/20/16 Ferrous Sulfate [Feosol] 325 mg PO BID 07/20/16 Mirtazapine [Remeron -] 15 mg PO HS 07/20/16 Tamsulosin HCl [Flomax] 0.4 mg PO DAILY 07/20/16 Acetaminophen [Tylenol .Regular Strength -] 650 mg PO Q4H PRN #0 tablet Heparin - 5,000 unit SQ BID vial 07/26/16 Mesalamine Suppository [Canasa Suppository -] 1,000 mg RC BID supp 07/26/16 Metronidazole [Flagyl -] 500 mg PO TID tablet 07/26/16 Nystatin Powder [Nystop Powder -] 1 applic TP TID applic 07/26/16 Sulfamethoxazole/Trimethoprim [Bactrim Ds -] 1 tab PO BID #6 tablet 07/26/16 Hypromellose 0.5% Opth Soln [Artificial Tears] 1 drop OU QID 07/29/16 Lactobacillus Acidophilus [Bacid -] 1 each PO BID 07/29/16 Family Disease History - Family Disease History Family Disease History: CA: Father (colon), Sister (colon) Review of Systems - Review of Systems Musculoskeletal: reports: Other (leg pain) Physical Examination Vital Signs: Vital Signs Temperature 98.2 F 07/30/16 07:58 Pulse Rate 97 H 07/30/16 07:58 Respiratory Rate 18 07/30/16 07:58 Blood Pressure 122/57 07/30/16 07:58 O2 Sat by Pulse Oximetry (%) 98 07/29/16 20:00 Constitutional: Yes: Calm, Other (co) Neck: Yes: Trachea Midline Cardiovascular: Yes: Regular Rate and Rhythm, S1, S2 Respiratory: Yes: CTA Bilaterally Gastrointestinal: Yes: Normal Bowel Sounds, Soft Renal/: Yes: Briones Present Edema: Yes Edema: LLE: 2+, RLE: 2+ Neurological: Yes: Alert Labs: CBC, BMP 07/30/16 06:09 07/30/16 06:09 Imaging - Results Cat Scan: Report Reviewed Other: Report Reviewed Problem List - Problems (1) Left leg DVT Assessment/Plan: full dose lovenox pulm and CTS eval for saddle emboli heme eval Code(s): I82.402 - ACUTE EMBOLISM AND THOMBOS UNSP DEEP VEINS OF L LOW EXTREM (2) Crohn disease Assessment/Plan: canasa bid for one month no asacol Code(s): K50.90 - CROHN'S DISEASE, UNSPECIFIED, WITHOUT COMPLICATIONS (3) UTI (urinary tract infection) Assessment/Plan: mrsa uti on bactrim for 5 days Code(s): N39.0 - URINARY TRACT INFECTION, SITE NOT SPECIFIED Qualifiers: Urinary tract infection type: acute cystitis Hematuria presence: without hematuria Qualified Code(s): N30.00 - Acute cystitis without hematuria (4) Urinary retention Assessment/Plan: flomax for vesicosphincteric dsynnergia uriary [facility] Code(s): R33.9 - RETENTION OF URINE, UNSPECIFIED
[2016-07-30 12:05] LABS: MAGNESIUM 2.1 mg/dL (1.8-2.4)
[2016-07-30] MEDS: TAMSULOSIN HCL 0.4 MG CAP.ER.24H (FP) PO SCH (12:40)
[2016-07-30] MEDS: CALCIUM 500MG/VIT-D 200 UNITS COMBO TABLET (FP) PO SCH (12:40)
[2016-07-30] MEDS: ASCORBIC ACID 500 MG TABLET (FP) PO SCH (12:40)
--- NOTE | 2016-07-30 14:57 | CONSULT ---
Consult Consult Specialty:: PULM/CCM Referred by:: RADHA Reason for Consultation:: PE - History of Present Illness Chief Complaint: Leg swelling History of Present Illness: 80 F, CAD s/p stent (2013), prolapsed hemorrhoids, recurrent UTI, interstitial cystitis, hypertension, hyperlipidemia, depression, Knee replacements. Patient reports being chronically bed bound for months (?). Admitted via the ER due to bilateral LE swelling and pain. No travel history or sick contacts. Denies SOB or CP. Seen in the ER. She is NAD on RA. Saturation is 97%. Hemodynamics are stable. 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 (DEMENTIA?) Cardio/Vascular: Yes: CAD, HTN, Hyperlipdemia Gastrointestinal: Yes: GI Bleed, Irritable Bowel Disease, Other (diarrehea Stercoral colitis) Renal/: Yes: Other (Aatonic bladder B/L hydroureteronephrosis Interstitial cystitis) Infectious Disease: Yes: Other (Urosepsis due to Klebsiella(ESBL)) Additional Medical History: Anal fissure with surgical intervention - Past Surgical History Past Surgical History: Yes: Cholecystectomy - Alcohol/Substance Use Hx Alcohol Use: No - Smoking History Smoking history: Former smoker Have you smoked in the past 12 months: No Aproximately how many cigarettes per day: 60 If you are a former smoker, when did you quit?: YEARS AGO - Social History Usual Living Arrangement: Alf ADL: Independent History of Recent Travel: Yes ([place] 11/16) Home Medications - Allergies Allergies/Adverse Reactions: Allergies Allergy/AdvReac Type Severity Reaction Status Date / Time linaclotide [From Linzess] Allergy Intermediate Severe Verified 07/20/16 15:36 diarrhea - Home Medications Home Medications: Ambulatory Orders Aa/Hydrolyzed Collagen, Whey [Lps Neutral Flavor Liquid] 30 ml PO BID 07/20/16 Acetaminophen [Pain Relief] 650 mg PO QID 07/20/16 Ascorbic Acid [Vitamin C -] 500 mg PO DAILY 07/20/16 Atorvastatin Ca [Lipitor] 10 mg PO HS 07/20/16 Calcium Carbonate/Vitamin D3 [Oyster Shell 500-Vit D3 200 Tb] 1 each PO DAILY Collagenase Clostridium Hist. [Santyl -] 1 applic TP BID 07/20/16 Dextran 70/Hypromellose/Pf [Artificial Tears Drops] 1 each OP QID 07/20/16 Ferrous Sulfate [Feosol] 325 mg PO BID 07/20/16 Mirtazapine [Remeron -] 15 mg PO HS 07/20/16 Tamsulosin HCl [Flomax] 0.4 mg PO DAILY 07/20/16 Acetaminophen [Tylenol .Regular Strength -] 650 mg PO Q4H PRN #0 tablet Heparin - 5,000 unit SQ BID vial 07/26/16 Mesalamine Suppository [Canasa Suppository -] 1,000 mg RC BID supp 07/26/16 Metronidazole [Flagyl -] 500 mg PO TID tablet 07/26/16 Nystatin Powder [Nystop Powder -] 1 applic TP TID applic 07/26/16 Sulfamethoxazole/Trimethoprim [Bactrim Ds -] 1 tab PO BID #6 tablet 07/26/16 Hypromellose 0.5% Opth Soln [Artificial Tears] 1 drop OU QID 07/29/16 Lactobacillus Acidophilus [Bacid -] 1 each PO BID 07/29/16 Family Disease History - Family Disease History Family Disease History: CA: Father (colon), Sister (colon) Review of Systems - Review of Systems Constitutional: reports: Malaise, Weakness. denies: Chills, Fever, Night Sweats , Unintentional Wgt. Loss Eyes: reports: No Symptoms HENT: reports: No Symptoms Neck: reports: No Symptoms Cardiovascular: reports: Edema. denies: Chest Pain, Palpitations, Shortness of Breath Respiratory: denies: Cough, Hemoptysis, Snoring, SOB, SOB on Exertion, Wheezing Gastrointestinal: reports: No Symptoms Genitourinary: reports: No Symptoms Breasts: reports: No Symptoms Reported Musculoskeletal: reports: Joint Swelling, Muscle Pain, Muscle Cramps Integumentary: reports: No Symptoms Neurological: reports: No Symptoms Endocrine: reports: No Symptoms Hematology/Lymphatic: reports: No Symptoms Psychiatric: reports: No Symptoms Physical Exam Vital Signs: Vital Signs Temperature 98.2 F 07/30/16 07:58 Pulse Rate 97 H 07/30/16 07:58 Respiratory Rate 18 07/30/16 07:58 Blood Pressure 122/57 07/30/16 07:58 O2 Sat by Pulse Oximetry (%) 99 07/29/16 21:47 Constitutional: Yes: No Distress, Calm Eyes: Yes: Conjunctiva Clear, EOM Intact HENT: Yes: Atraumatic, Normocephalic Neck: Yes: Supple, Trachea Midline Cardiovascular: Yes: Tachycardia, Pulse Irregular Respiratory: Yes: Diminished. No: Accessory Muscle Use, Cough, Stridor, Tachypnea, Wheezes Gastrointestinal: Yes: Normal Bowel Sounds, Soft ...Rectal Exam: Yes: Deferred Renal/: Yes: WNL Musculoskeletal: Yes: WNL Extremities: Yes: WNL Edema: Yes Peripheral Pulses WNL: Yes Integumentary: Yes: WNL Neurological: Yes: Alert, Oriented ...Motor Strength: WNL Psychiatric: Yes: Alert, Oriented Labs: CBC, BMP 07/30/16 06:09 07/30/16 06:09 Imaging - Results Chest X-ray: Report Reviewed, Image Reviewed Cat Scan: Report Reviewed, Image Reviewed Problem List - Problems (1) Left leg DVT Code(s): I82.402 - ACUTE EMBOLISM AND THOMBOS UNSP DEEP VEINS OF L LOW EXTREM (2) A-fib Code(s): I48.91 - UNSPECIFIED ATRIAL FIBRILLATION (3) Abdominal pain Code(s): R10.9 - UNSPECIFIED ABDOMINAL PAIN Qualifiers: Abdominal location: generalized Qualified Code(s): R10.84 - Generalized abdominal pain (4) Anemia Code(s): D64.9 - ANEMIA, UNSPECIFIED (5) Hypertension Code(s): I10 - ESSENTIAL (PRIMARY) HYPERTENSION (6) IBD (inflammatory bowel disease) Code(s): K63.89 - OTHER SPECIFIED DISEASES OF INTESTINE (7) Tachycardia Code(s): R00.0 - TACHYCARDIA, UNSPECIFIED (8) Pulmonary embolism and infarction Code(s): I26.99 - OTHER PULMONARY EMBOLISM WITHOUT ACUTE COR PULMONALE Assessment/Plan PLAN: Lovenox 1 mg/kg BID ECHO O2 as needed No indication for acute Lysis Patient with no pain or significant lung exam findings / clinical symptoms -> Question true Pulmonary Infarction Would monitor off ABX for now Cardiac Telemetry monitoring Will follow Thank you. Dr Rivero
--- NOTE | 2016-07-30 16:54 | CONSULT ---
Consult - text type - Consultation Consultation Note: 80 year old female from [facility], with a significant past medical history of CAD s/p stent(2013), stage 3 prolapsed hemorrhoids, UTIs, interstitial cystitis, hypertension, hyperlipidemia, depression, who present to the emergency department complaining of lower leg pain. The patient reports the pain is localized more on the right side of her leg than the left. The patient denies any leg swelling, chest pain, diaphoresis, palpitations, or shortness of breath. The patient denies any nausea, vomiting, diarrhea, constipation, or changes in urination patterns. The patient denies fever, chills, cough, headache, and dizziness. The patient denies any recent travel or sick contacts. 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?) Cardiovascular: Yes: CAD, HTN, Hyperlipdemia Gastrointestinal: Yes: GI Bleed, Irritable Bowel Disease, Other (diarrehea Stercoral colitis) Renal/: Yes: Other (Atonic bladder B/L hydroureteronephrosis Interstitial cystitis) Heme/Onc: Yes: Anemia Infectious Disease: Yes: Other (Urosepsis due to Klebsiella(ESBL)) - Past Surgical History Past Surgical History: Yes: Cholecystectomy - Smoking History Smoking history: Former smoker - Social History ADL: Independent History of Recent Travel: Yes ([place] 11/16) Home Medications - Allergies Allergies/Adverse Reactions: Allergies Allergy/AdvReac Type Severity Reaction Status Date / Time linaclotide [From Linzess] Allergy Intermediate Severe Verified 07/20/16 15:36 diarrhea - Home Medications Home Medications: Ambulatory Orders Aa/Hydrolyzed Collagen, Whey [Lps Neutral Flavor Liquid] 30 ml PO BID 07/20/16 Acetaminophen [Pain Relief] 650 mg PO QID 07/20/16 Ascorbic Acid [Vitamin C -] 500 mg PO DAILY 07/20/16 Atorvastatin Ca [Lipitor] 10 mg PO HS 07/20/16 Calcium Carbonate/Vitamin D3 [Oyster Shell 500-Vit D3 200 Tb] 1 each PO DAILY Collagenase Clostridium Hist. [Santyl -] 1 applic TP BID 07/20/16 Dextran 70/Hypromellose/Pf [Artificial Tears Drops] 1 each OP QID 07/20/16 Ferrous Sulfate [Feosol] 325 mg PO BID 07/20/16 Mirtazapine [Remeron -] 15 mg PO HS 07/20/16 Tamsulosin HCl [Flomax] 0.4 mg PO DAILY 07/20/16 Acetaminophen [Tylenol .Regular Strength -] 650 mg PO Q4H PRN #0 tablet Heparin - 5,000 unit SQ BID vial 07/26/16 Mesalamine Suppository [Canasa Suppository -] 1,000 mg RC BID supp 07/26/16 Metronidazole [Flagyl -] 500 mg PO TID tablet 07/26/16 Nystatin Powder [Nystop Powder -] 1 applic TP TID applic 07/26/16 Sulfamethoxazole/Trimethoprim [Bactrim Ds -] 1 tab PO BID #6 tablet 07/26/16 Hypromellose 0.5% Opth Soln [Artificial Tears] 1 drop OU QID 07/29/16 Lactobacillus Acidophilus [Bacid -] 1 each PO BID 07/29/16 Current Medications Acetaminophen (Tylenol -) 650 mg PO Q6H PRN PRN Reason: FEVER OR PAIN Artificial Tears (Artificial Tears) 1 drop OU QID [facility] Last Admin: 07/30/16 14:00 Dose: Not Given Ascorbic Acid (Vitamin C -) 500 mg PO DAILY [facility] Last Admin: 07/30/16 12:40 Dose: 500 mg Atorvastatin Calcium (Lipitor -) 10 mg PO HS [facility] Last Admin: 07/30/16 08:50 Dose: Not Given Calcium Carbonate/Cholecalciferol (Os-Dieudonne 500+D -) 1 tab PO DAILY [facility] Last Admin: 07/30/16 12:40 Dose: 1 tab Collagenase (Santyl -) 1 applic TP BID [facility] Last Admin: 07/30/16 12:40 Dose: Not Given Enoxaparin Sodium (Lovenox -) 60 mg SQ BID [facility] Last Admin: 07/30/16 11:01 Dose: 60 mg Ferrous Sulfate (Feosol -) 325 mg PO BID [facility] Last Admin: 07/30/16 12:40 Dose: 325 mg Lactobacillus Acidophilus (Bacid -) 1 tab PO BID [facility] Last Admin: 07/30/16 12:40 Dose: 1 tab Mesalamine (Canasa Suppository -) 1,000 mg RC BID [facility] Last Admin: 07/30/16 12:35 Dose: Not Given Metronidazole (Flagyl -) 500 mg PO TID [facility] Mirtazapine (Remeron -) 15 mg PO HS [facility] Last Admin: 07/30/16 08:50 Dose: Not Given Nystatin (Nystop Powder -) 1 applic TP TID [facility] Last Admin: 07/30/16 14:00 Dose: Not Given Tamsulosin HCl (Flomax -) 0.4 mg PO DAILY [facility] Last Admin: 07/30/16 12:40 Dose: 0.4 mg Trimethoprim/Sulfamethoxazole (Bactrim Ds -) 1 each PO BID [facility] Family Disease History - Family Disease History Family Disease History: CA: Father (colon), Sister (colon) Review of Systems - Review of Systems Musculoskeletal: reports: Other (leg pain) Physical Examination Vital Signs: Vital Signs Temperature 98.2 F 07/30/16 07:58 Pulse Rate 97 H 07/30/16 07:58 Respiratory Rate 18 07/30/16 07:58 Blood Pressure 122/57 07/30/16 07:58 O2 Sat by Pulse Oximetry (%) 98 07/29/16 20:00 Constitutional: Yes: Calm, Other (co) Neck: Yes: Trachea Midline Cardiovascular: Yes: Regular Rate and Rhythm, S1, S2 Respiratory: Yes: CTA Bilaterally Gastrointestinal: Yes: Normal Bowel Sounds, Soft Renal/: Yes: Briones Present Edema: Yes Edema: LLE: 2+, RLE: 2+ Neurological: Yes: Alert Abnormal Lab Results 07/30/16 07/30/16 07/30/16 02:05 02:05 02:05 RBC 2.93 L Hgb 8.7 L Hct 26.3 L RDW 16.9 H MPV 7.3 L Monocytes % 11.1 H INR 1.47 H Chloride Carbon Dioxide BUN 21 H D Random Glucose Calcium 8.2 L Alkaline Phosphatase 145 H Total Protein 4.7 L Albumin 1.2 L 07/30/16 07/30/16 07/30/16 06:09 06:09 06:09 RBC 2.85 L Hgb 8.4 L Hct 25.5 L RDW 16.9 H MPV 7.1 L Monocytes % INR 1.55 H Chloride 110 H Carbon Dioxide 19 L BUN 21 H Random Glucose 66 L Calcium 7.7 L Alkaline Phosphatase 149 H Total Protein 4.8 L Albumin 1.2 L A/P 80-year-old woman, with HTN, HLD, CAD, DEmentia, gi bleed, irritable bowel disease,chronic proctitis, ESBL/MRSA UTI comes in with extensive LLE DVT/B/l PE --lower lobes and sub segmental DVT/PE--on lovenox Normal renal function Elevated ALKP --monitor Elevated INR/PT -- coagulopathy. ? vit. K deficiency anemia: Of chronic disease. hgb 8.4 recent MRSA/ESBL UTI normocytic WBC/platelets --normal Stercoral ulcer iron studies s/o chronic disease B12/folate /TSH--nl protein studies -- nl monitor for bleeding wt. loss-- CT c/a/p -- rectosigmoid proctitis/colitis Splenic cyst --3.1 cm noted since 2011
[2016-07-30] MEDS ORDERED: PT OWN MED DRAWER 7, Y5N ONE ×3 (18:25→22:09)
[2016-07-30 20:38] LABS: URINE APPEARANCE CLOUDY; URINE BILIRUBIN NEGATIVE (NEGATIVE); URINE COLOR DKYELLOW; URINE GLUCOSE (UA) NEGATIVE (NEGATIVE); URINE KETONE NEGATIVE (NEGATIVE); URINE NITRITE POSITIVE (NEGATIVE); URINE UROBILINOGEN NEGATIVE E.U./dl (0.2-1.0)
[2016-07-30 20:40] LABS: URINE BLOOD 3+ (NEGATIVE); URINE LEUK ESTERASE 3+ (NEGATIVE); URINE PROTEIN 2+ (NEGATIVE)
[2016-07-30 20:46] LABS: CALCIUM OXALATE CRYSTALS FEW /hpf (NONE SEEN); URINE BACTERIA MANY /hpf (NONE SEEN); URINE MUCUS RARE; URINE RBC 433 /hpf (0-3); URINE WBC 494 /hpf (3-5); YEAST FEW
[2016-07-31] MEDS: NYSTATIN POWDER 100,000 UNITS/GM - 15 GM TOPICAL POWDER TP SCH ×3 (06:04→22:36)
[2016-07-31 07:28] LABS: BASOPHIL 0.7 % (0-2.0); EOSINOPHIL 1.4 % (0-4.5); MCH 29.5 pg (25.7-33.7); MCHC 32.9 g/dl (32.0-36.0); MEAN CELL VOLUME 89.7 fl (80-96); MEAN PLT VOLUME 6.8 fl (7.5-11.1); NEUTROPHILS 63.4 % (42.8-82.8); PLATELET COUNT 332 K/MM3 (134-434); RDW 17.1 % (11.6-15.6); WHITE BLOOD COUNT 6.6 K/mm3 (4.0-10.0)
--- NOTE | 2016-07-31 08:19 | CONSULT ---
Consult - text type - Consultation Consultation Note: Thoracic Surgery Consult Reason for consult: PE and CT lung findings Pt seen and examined. 80F with CAD s/p stent, recurrent UTI, HTN, hyperlipidemia , b/l knee replacements, chronically bedbound who presented to ED for bilateral LE swelling and pain. US and CT chest showed DVTs and PE's. Lung findings appear c/w wedge infarct. HD stable. Oxygenation adequate. PE significant for tachycardia on vitals. 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 -I have spent 30 minutes with greater than 50% of the time spent in counseling and coordination of care for this patient and this included reviewing the history, physical exam, imaging, and labs on this patient.
[2016-07-31 08:27] LABS: ALBUMIN 1.2 g/dl (3.4-5.0); ANION GAP 10 (8-16); CALCIUM 7.7 mg/dL (8.5-10.1); CO2 21 mmol/L (21-32)
[2016-07-31 08:32] LABS: ALK PHOS 135 U/L (45-117); BILIRUBIN,TOTAL 0.4 mg/dL (0.2-1.0); CREATININE 0.8 mg/dL (0.55-1.02); SGOT/AST 28 U/L (15-37); SGPT/ALT 23 U/L (12-78); TOT PROT 4.5 g/dl (6.4-8.2)
[2016-07-31] MEDS ORDERED: PT OWN MED DRAWER 7, Y5N ONE ×2 (08:50→21:55)
[2016-07-31 09:05] LABS: GLUCOSE,RANDOM 48 mg/dL (74-106)
[2016-07-31] MEDS: ARTIFICIAL TEARS (POLYVINYL ALCOHOL 1.4%) OPTH DROPS OU SCH ×4 (09:20→22:35)
[2016-07-31] MEDS: LACTOBACILLUS ACIDOPHILUS 1 EACH TAB (FP) PO SCH ×2 (09:20→22:10)
--- NOTE | 2016-07-31 09:20 | PN ---
Progress Note, Physician History of Present Illness: LEG PAIN - Current Medication List Current Medications: Active Medications Acetaminophen (Tylenol -) 650 mg PO Q6H PRN PRN Reason: FEVER OR PAIN Artificial Tears (Artificial Tears) 1 drop OU QID [facility] Last Admin: 07/30/16 21:35 Dose: 1 drop Ascorbic Acid (Vitamin C -) 500 mg PO DAILY [facility] Last Admin: 07/30/16 12:40 Dose: 500 mg Atorvastatin Calcium (Lipitor -) 10 mg PO HS [facility] Last Admin: 07/30/16 21:36 Dose: 10 mg Calcium Carbonate/Cholecalciferol (Os-Dieudonne 500+D -) 1 tab PO DAILY [facility] Last Admin: 07/30/16 12:40 Dose: 1 tab Collagenase (Santyl -) 1 applic TP BID [facility] Last Admin: 07/30/16 21:36 Dose: 1 applic Enoxaparin Sodium (Lovenox -) 60 mg SQ BID [facility] Last Admin: 07/30/16 21:37 Dose: 60 mg Ferrous Sulfate (Feosol -) 325 mg PO BID [facility] Last Admin: 07/30/16 21:36 Dose: 325 mg Lactobacillus Acidophilus (Bacid -) 1 tab PO BID [facility] Last Admin: 07/30/16 21:36 Dose: 1 tab Mesalamine (Canasa Suppository -) 1,000 mg RC BID [facility] Last Admin: 07/30/16 21:36 Dose: 1,000 mg Metronidazole (Flagyl -) 500 mg PO TID [facility] Mirtazapine (Remeron -) 15 mg PO HS [facility] Last Admin: 07/30/16 21:36 Dose: 15 mg Nystatin (Nystop Powder -) 1 applic TP TID [facility] Last Admin: 07/31/16 06:04 Dose: 1 applic Tamsulosin HCl (Flomax -) 0.4 mg PO DAILY [facility] Last Admin: 07/30/16 12:40 Dose: 0.4 mg Trimethoprim/Sulfamethoxazole (Bactrim Ds -) 1 each PO BID [facility] - Objective Vital Signs: Vital Signs Temperature 98.4 F 07/31/16 09:15 Pulse Rate 95 H 07/31/16 09:15 Respiratory Rate 18 07/31/16 09:15 Blood Pressure 98/61 07/31/16 09:15 O2 Sat by Pulse Oximetry (%) 96 07/30/16 21:00 Cardiovascular: Yes: Regular Rate and Rhythm Respiratory: Yes: Regular, CTA Bilaterally Gastrointestinal: Yes: Normal Bowel Sounds, Soft Labs: CBC, BMP 07/31/16 06:00 07/31/16 06:00 INR, PTT INR 1.55 (0.82-1.09) H 07/30/16 06:09 Assessment/Plan - Problems (1) Left leg DVT Assessment/Plan: full dose Lovenox pulm and CTS eval for saddle emboli heme eval Code(s): I82.402 - ACUTE EMBOLISM AND THOMBOS UNSP DEEP VEINS OF L LOW EXTREM (2) Crohn disease Assessment/Plan: canasa bid for one month no asacol Code(s): K50.90 - CROHN'S DISEASE, UNSPECIFIED, WITHOUT COMPLICATIONS (3) UTI (urinary tract infection) Assessment/Plan: mrsa uti on bactrim for 5 days Code(s): N39.0 - URINARY TRACT INFECTION, SITE NOT SPECIFIED Qualifiers: Urinary tract infection type: acute cystitis Hematuria presence: without hematuria Qualified Code(s): N30.00 - Acute cystitis without hematuria (4) Urinary retention Assessment/Plan: flomax for vesicosphincteric dsynnergia uriary retention [facility] Code(s): R33.9 - RETENTION OF URINE, UNSPECIFIED
[2016-07-31] MEDS: MESALAMINE 1000 MG/SUPP.RECT SUPP RC SCH ×2 (09:21→22:35)
[2016-07-31] MEDS: ASCORBIC ACID 500 MG TABLET (FP) PO SCH (09:25)
[2016-07-31] MEDS: FERROUS SO4 325 MG TABLET (FP) PO SCH ×2 (09:25→22:10)
[2016-07-31] MEDS: COLLAGENASE CLOSTRIDIUM HIST. 30 GRAMS TUBE TP SCH ×2 (09:26→22:36)
[2016-07-31] MEDS: TAMSULOSIN HCL 0.4 MG CAP.ER.24H (FP) PO SCH (09:26)
[2016-07-31] MEDS: ENOXAPARIN NA (PORCINE) 60 MG/0.6 ML DISP.SYRIN SQ SCH ×2 (09:26→22:36)
[2016-07-31] MEDS: CALCIUM 500MG/VIT-D 200 UNITS COMBO TABLET (FP) PO SCH (09:27)
--- NOTE | 2016-07-31 13:32 | PN ---
Progress Note (short form) - Note Progress Note: PULMONARY CHART REVIEWED APPEARS CHRONICALLY ILL/SNF RESIDENT/BED BOUND WITH POOR PERFORMANCE STATUS BP98/61 HR 95 TMAX 98.0 RR 18 SPO2 96% PALE/ANICTERIC DISTANT BREATH SOUNDS B/L S1S2 WITH ECTOPICS OBESE SOFT B/L LOWER EXT EDEMA R>L WITH CALF TENDERNESS IMAGING/MEDS/NOTES/MICRO/LABS REVIEWED VTE:PE, DVT CAD PCI STENTS HTN/HPL/DEPRESSION CROHNS COLITIS WITH H/O GI BLD/ANEMIA [facility] RESIDENT INTERSTITIAL CYSTITIS/UTI AWAIT ECHO RESULTS WOULD CONSIDER ELIQUIS PENDING ABOVE CONTINUE LOVENOX FOR NOW CARDIOLOGY EVAL GIVEN H/O CAD MONITOR HGB CONTINUE O2 SUPPLEMENTATION CORRECT GLUCOSE 48 WILL FOLLOW CONTINUE TELE Fidel GUY MD
[2016-07-31 13:38] LABS: FERRITIN 359.515 ng/ml (6.9-282.5)
[2016-07-31] MEDS: MIRTAZAPINE 15 MG TABLET (FP) PO SCH (22:10)
[2016-07-31] MEDS: ATORVASTATIN CA 10 MG TABLET (FP) PO SCH (22:10)
[2016-08-01] MEDS: NYSTATIN POWDER 100,000 UNITS/GM - 15 GM TOPICAL POWDER TP SCH ×3 (06:07→21:44)
[2016-08-01 08:11] LABS: SERUM IRON 71 ug/dL (27-139); TOTAL IRON BINDING CAPACITY < 88 ug/dL (250-450); UIBC < 17 ug/dL (118-369)
[2016-08-01] MEDS: LACTOBACILLUS ACIDOPHILUS 1 EACH TAB (FP) PO SCH ×2 (09:31→21:43)
[2016-08-01] MEDS: TAMSULOSIN HCL 0.4 MG CAP.ER.24H (FP) PO SCH (09:31)
[2016-08-01] MEDS: ARTIFICIAL TEARS (POLYVINYL ALCOHOL 1.4%) OPTH DROPS OU SCH ×4 (09:31→21:43)
[2016-08-01] MEDS: FERROUS SO4 325 MG TABLET (FP) PO SCH ×2 (09:31→21:43)
[2016-08-01] MEDS: ENOXAPARIN NA (PORCINE) 60 MG/0.6 ML DISP.SYRIN SQ SCH ×2 (09:32→21:43)
[2016-08-01] MEDS: CALCIUM 500MG/VIT-D 200 UNITS COMBO TABLET (FP) PO SCH (09:32)
[2016-08-01] MEDS: MESALAMINE 1000 MG/SUPP.RECT SUPP RC SCH ×2 (09:32→21:43)
[2016-08-01] MEDS: ASCORBIC ACID 500 MG TABLET (FP) PO SCH (09:33)
--- NOTE | 2016-08-01 11:04 | PN ---
Progress Note (short form) - Note Progress Note: PULMONARY CHART REVIEWED APPEARS CHRONICALLY ILL/SNF RESIDENT/BED BOUND WITH POOR PERFORMANCE STATUS VSS/SPO2 96% R/A PALE/ANICTERIC DISTANT BREATH SOUNDS B/L S1S2 WITH ECTOPICS OBESE SOFT B/L LOWER EXT EDEMA R>L WITH CALF TENDERNESS IMAGING/MEDS/NOTES/MICRO/LABS REVIEWED VTE:PE, DVT CAD PCI STENTS HTN/HPL/DEPRESSION CROHNS COLITIS WITH H/O GI BLD/ANEMIA [facility] RESIDENT INTERSTITIAL CYSTITIS/UTI AWAIT ECHO RESULTS CONTINUE LOVENOX FOR NOW CARDIOLOGY EVAL GIVEN H/O CAD MONITOR HGB CONTINUE O2 SUPPLEMENTATION CORRECT GLUCOSE 48 WILL FOLLOW CONTINUE TELEMETRY Fidel GUY MD
--- NOTE | 2016-08-01 11:29 | PN ---
Progress Note, Physician History of Present Illness: LEG PAIN - Current Medication List Current Medications: Active Medications Acetaminophen (Tylenol -) 650 mg PO Q6H PRN PRN Reason: FEVER OR PAIN Artificial Tears (Artificial Tears) 1 drop OU QID [facility] Last Admin: 08/01/16 09:31 Dose: 1 drop Ascorbic Acid (Vitamin C -) 500 mg PO DAILY [facility] Last Admin: 08/01/16 09:33 Dose: 500 mg Atorvastatin Calcium (Lipitor -) 10 mg PO HS [facility] Last Admin: 07/31/16 22:10 Dose: 10 mg Calcium Carbonate/Cholecalciferol (Os-Dieudonne 500+D -) 1 tab PO DAILY [facility] Last Admin: 08/01/16 09:32 Dose: 1 tab Collagenase (Santyl -) 1 applic TP BID [facility] Last Admin: 07/31/16 22:36 Dose: Not Given Enoxaparin Sodium (Lovenox -) 60 mg SQ BID [facility] Last Admin: 08/01/16 09:32 Dose: 60 mg Ferrous Sulfate (Feosol -) 325 mg PO BID [facility] Last Admin: 08/01/16 09:31 Dose: 325 mg Lactobacillus Acidophilus (Bacid -) 1 tab PO BID [facility] Last Admin: 08/01/16 09:31 Dose: 1 tab Mesalamine (Canasa Suppository -) 1,000 mg RC BID [facility] Last Admin: 08/01/16 09:32 Dose: 1,000 mg Mirtazapine (Remeron -) 15 mg PO HS [facility] Last Admin: 07/31/16 22:10 Dose: 15 mg Nystatin (Nystop Powder -) 1 applic TP TID [facility] Last Admin: 08/01/16 06:07 Dose: 1 applic Tamsulosin HCl (Flomax -) 0.4 mg PO DAILY [facility] Last Admin: 08/01/16 09:31 Dose: 0.4 mg - Objective Vital Signs: Vital Signs Temperature 97.5 F L 08/01/16 07:04 Pulse Rate 96 H 08/01/16 07:04 Respiratory Rate 20 08/01/16 07:04 Blood Pressure 114/63 08/01/16 07:04 O2 Sat by Pulse Oximetry (%) 96 07/31/16 22:00 Respiratory: Yes: Regular, CTA Bilaterally Gastrointestinal: Yes: Normal Bowel Sounds, Soft Extremities: Yes: Calf Tenderness (LEFT) Edema: Yes Edema: LLE: 2+ Labs: CBC, BMP 07/31/16 06:00 07/31/16 06:00 INR, PTT INR 1.55 (0.82-1.09) H 07/30/16 06:09 Assessment/Plan - Problems (1) Left leg DVT Assessment/Plan: full dose Lovenox pulm and CTS eval for saddle emboli heme eval Code(s): I82.402 - ACUTE EMBOLISM AND THOMBOS UNSP DEEP VEINS OF L LOW EXTREM (2) Crohn disease Assessment/Plan: canasa bid for one month no asacol Code(s): K50.90 - CROHN'S DISEASE, UNSPECIFIED, WITHOUT COMPLICATIONS (3) UTI (urinary tract infection) Assessment/Plan: mrsa uti on bactrim for 5 days Code(s): N39.0 - URINARY TRACT INFECTION, SITE NOT SPECIFIED Qualifiers: Urinary tract infection type: acute cystitis Hematuria presence: without hematuria Qualified Code(s): N30.00 - Acute cystitis without hematuria (4) Urinary retention Assessment/Plan: flomax for vesicosphincteric dsynnergia uriary retention [facility] Code(s): R33.9 - RETENTION OF URINE, UNSPECIFIED (5) HYPOGLYCEMIA Assessment/Plan: Laboratory Tests 07/31/16 07/31/16 07/31/16 06:00 09:08 11:36 POC Glucometer 58 70 Random Glucose 48 L* D 07/31/16 07/31/16 17:46 22:21 POC Glucometer 123 88 Random Glucose MONITOR ENDO
--- NOTE | 2016-08-01 13:54 | PN ---
Progress Note (short form) - Note Progress Note: ID consult dictated imp/reccd 80 year old female just dicsharged with frost catheter on 07/26, readmitted 07/29 with left leg swelling and extensive DVT/PE no signs or symptoms of UTI found to have positive urine culture would not treat for UTI she is not symptomatic continue contact isolation for resistant organisms asymptomatic bacteriuria in the setting of chronic frost catheter please call back if needed Problem List - Problems (1) Asymptomatic bacteriuria Code(s): N39.0 - URINARY TRACT INFECTION, SITE NOT SPECIFIED (2) Chronic indwelling Frost catheter Code(s): Z92.89 - PERSONAL HISTORY OF OTHER MEDICAL TREATMENT
[2016-08-01] MEDS: COLLAGENASE CLOSTRIDIUM HIST. 30 GRAMS TUBE TP SCH ×2 (14:00→21:44)
--- NOTE | 2016-08-01 19:46 | CONS ---
DATE OF CONSULTATION: 08/01/2016 REQUESTING PHYSICIAN: Holden Bhatt MD HISTORY: This is a 80-year-old woman. She was just in the hospital earlier this month with abdominal discomfort, urinary retention, and hypotension. Given her hypotension and the urinary retention, she was treated for an MRSA UTI. She was discharged back to the senior living with a Briones in place on the . She was readmitted on the with swelling of her left leg. She was found to have extensive DVT and bilateral PE's. She is currently being anticoagulated. Again, her urine culture is growing this time gram-negative bacillus and I am asked to see her for further evaluation. She is awake and alert, resting quite comfortably. She has no symptoms of dysuria or frequency. She is eating well. She has no nausea or vomiting. PAST MEDICAL HISTORY: Notable for resistant organisms in her urine, including the recent MRSA and a history of a CRE Klebsiella in the past. Her past medical history is notable as well for chronic abdominal pain, severe ulceration in the past, intermittent urinary retention, history of cystoscopy and bladder denervation with Botox in September 2015, coronary artery disease with stenting, inflammatory bowel disease, atrial fibrillation, hypertension, hyperlipidemia, prolapsed hemorrhoids, current urinary tract infection as well as chronic proctitis. ALLERGIES: SHE IS ALLERGIC TO LINZESS. SURGICAL HISTORY: Notable for laparoscopic cholecystectomy with complicating perforated bile duct and left knee replacement. SOCIAL HISTORY: She resides at the senior living. MEDICATIONS: As an outpatient include ProStat, vitamin C, Lipitor, calcium, Santyl, Feosol, Remeron, Flomax, subcutaneous heparin, Canasa, Flagyl, Bactrim, and lactobacillus. FAMILY HISTORY: Notable for colon cancer in her father and her sister. PHYSICAL EXAMINATION: Vital signs: Temperature 98.2, pulse is 108, blood pressure 109/64, respiratory rate 20. She is saturating 97% on room air. HEENT: She is normocephalic. Her eyes are anicteric. Neck: Supple. Lungs: Clear to auscultation. Heart: Regular rate and rhythm. Abdomen: Soft and nontender. Extremities: Have trace edema bilaterally. LABORATORY STUDIES: Her white count is 6.6, hemoglobin 8.4, platelets at 332, BUN is 17 and creatinine is 0.8. Urine culture has a gram-negative bacillus. Her CTA of her chest reveals bilateral pulmonary emboli. Duplex of the legs shows extensive lower extremity DVT on the left. SUMMARY: This is an elderly woman with a chronic Briones catheter with a newly diagnosed DVT and PE, being anticoagulated and found to have a positive urine culture in the setting of a chronic Briones catheter. She is not symptomatic, so I would not treat her. I would continue contact isolation for the persistent organisms. Please call back if needed. This is in the setting of asymptomatic bacteruria in the setting of a chronic Briones catheter. KEV MCGOVERN M.D. [id number]
[2016-08-01] MEDS ORDERED: PT OWN MED DRAWER 7, Y5N ONE (21:38)
[2016-08-01] MEDS: MIRTAZAPINE 15 MG TABLET (FP) PO SCH (21:43)
[2016-08-01] MEDS: ATORVASTATIN CA 10 MG TABLET (FP) PO SCH (21:43)
--- NOTE | 2016-08-01 23:19 | CONSULT ---
Consult Consult Specialty:: endocrine Referred by:: dr.annabi juarez Reason for Consultation:: hypoglycemia - History of Present Illness Chief Complaint: weakness,confused History of Present Illness: 80 female,from [facility], with a significant past medical history of CAD s/p stent(2013), stage 3 prolapsed hemorrhoids, UTIs, interstitial cystitis , hypertension, hyperlipidemia, depression, who presents to the emergency department complaining of lower leg pain found to have dvt,lleg,has bilateral saddle emboli,requiring anticoagulation.has hypoglycemia,and hypocalcemia, decreased appetite nause and weakness.. - History Source History Provided By: Patient, Transfer Record - Past Medical History TANK COOPER: Yes: Other (DEMENTIA?) Cardio/Vascular: Yes: CAD, HTN, Hyperlipdemia Gastrointestinal: Yes: GI Bleed, Irritable Bowel Disease, Other (diarrehea Stercoral colitis) Renal/: Yes: Other (Aatonic bladder B/L hydroureteronephrosis Interstitial cystitis) ...: No Infectious Disease: Yes: Other (Urosepsis due to Klebsiella(ESBL)) Additional Medical History: Anal fissure with surgical intervention - Past Surgical History Past Surgical History: Yes: Cholecystectomy - Alcohol/Substance Use Hx Alcohol Use: No - Smoking History Smoking history: Former smoker Have you smoked in the past 12 months: No Aproximately how many cigarettes per day: 60 If you are a former smoker, when did you quit?: YEARS AGO - Social History Usual Living Arrangement: Senior Living ADL: Independent History of Recent Travel: Yes ([place] 11/16) Home Medications - Allergies Allergies/Adverse Reactions: Allergies Allergy/AdvReac Type Severity Reaction Status Date / Time linaclotide [From Linzess] Allergy Intermediate Severe Verified 07/20/16 15:36 diarrhea - Home Medications Home Medications: Ambulatory Orders Aa/Hydrolyzed Collagen, Whey [Lps Neutral Flavor Liquid] 30 ml PO BID 07/20/16 Acetaminophen [Pain Relief] 650 mg PO QID 07/20/16 Ascorbic Acid [Vitamin C -] 500 mg PO DAILY 07/20/16 Atorvastatin Ca [Lipitor] 10 mg PO HS 07/20/16 Calcium Carbonate/Vitamin D3 [Oyster Shell 500-Vit D3 200 Tb] 1 each PO DAILY Collagenase Clostridium Hist. [Santyl -] 1 applic TP BID 07/20/16 Dextran 70/Hypromellose/Pf [Artificial Tears Drops] 1 each OP QID 07/20/16 Ferrous Sulfate [Feosol] 325 mg PO BID 07/20/16 Mirtazapine [Remeron -] 15 mg PO HS 07/20/16 Tamsulosin HCl [Flomax] 0.4 mg PO DAILY 07/20/16 Acetaminophen [Tylenol .Regular Strength -] 650 mg PO Q4H PRN #0 tablet Heparin - 5,000 unit SQ BID vial 07/26/16 Mesalamine Suppository [Canasa Suppository -] 1,000 mg RC BID supp 07/26/16 Metronidazole [Flagyl -] 500 mg PO TID tablet 07/26/16 Nystatin Powder [Nystop Powder -] 1 applic TP TID applic 07/26/16 Sulfamethoxazole/Trimethoprim [Bactrim Ds -] 1 tab PO BID #6 tablet 07/26/16 Hypromellose 0.5% Opth Soln [Artificial Tears] 1 drop OU QID 07/29/16 Lactobacillus Acidophilus [Bacid -] 1 each PO BID 07/29/16 Family Disease History - Family Disease History Family Disease History: CA: Father (colon), Sister (colon) Review of Systems - Review of Systems Constitutional: reports: Malaise Physical Exam Vital Signs: Vital Signs Temperature 97 F L 08/01/16 18:56 Pulse Rate 102 H 08/01/16 18:56 Respiratory Rate 18 08/01/16 18:56 Blood Pressure 104/63 08/01/16 18:56 O2 Sat by Pulse Oximetry (%) 97 08/01/16 10:00 Constitutional: Yes: Anxious Eyes: Yes: EOM Intact HENT: Yes: Normocephalic Neck: Yes: Trachea Midline Cardiovascular: Yes: Regular Rate and Rhythm Respiratory: Yes: CTA Bilaterally Gastrointestinal: Yes: Normal Bowel Sounds ...Rectal Exam: Yes: Deferred Renal/: Yes: WNL Breast(s): Yes: WNL Musculoskeletal: Yes: Muscle Pain, Muscle Weakness Extremities: Yes: Calf Tenderness Edema: No Peripheral Pulses WNL: Yes Neurological: Yes: Alert, Confusion, Lethargy Psychiatric: Yes: Alert, Agitated Labs: CBC, BMP 07/31/16 06:00 07/31/16 06:00 Problem List - Problems (1) Left leg DVT Code(s): I82.402 - ACUTE EMBOLISM AND THOMBOS UNSP DEEP VEINS OF L LOW EXTREM (2) Pulmonary embolism and infarction Code(s): I26.99 - OTHER PULMONARY EMBOLISM WITHOUT ACUTE COR PULMONALE (3) Hypoglycemia Code(s): E16.2 - HYPOGLYCEMIA, UNSPECIFIED Assessment/Plan Current Active Problems Asymptomatic bacteriuria (Acute) Chronic indwelling Briones catheter (Acute) Left leg DVT (Acute) Pulmonary embolism and infarction (Acute) hypoglycemia, poor appetite,vs hyperinsulinemia Abnormal Lab Results 07/31/16 06:00 TIBC < 88 L Iron Saturation > 81 H Laboratory Results - last 24 hr 07/31/16 08/01/16 08/01/16 06:00 12:24 17:39 POC Glucometer 119 128 Iron 71 TIBC < 88 L Iron Saturation > 81 H 08/01/16 21:50 POC Glucometer 167 Iron TIBC Iron Saturation Laboratory Tests 07/31/16 06:00 Sodium 141 Potassium 3.8 Chloride 110 H Carbon Dioxide 21 Anion Gap 10 BUN 17 Creatinine 0.8 Creat Clearance w eGFR > 60 Random Glucose 48 L* D Calcium 7.7 L Albumin 1.2 L plan: bgm qid advance diet boost tid check hba1c ck tsh fasting glucose
[2016-08-02] MEDS: NYSTATIN POWDER 100,000 UNITS/GM - 15 GM TOPICAL POWDER TP SCH ×3 (05:24→21:52)
[2016-08-02] MEDS ORDERED: PT OWN MED DRAWER 7, Y5N ONE ×5 (05:26→21:41)
[2016-08-02 07:35] LABS: MCHC 33.3 g/dl (32.0-36.0); MEAN CELL VOLUME 89.9 fl (80-96); MEAN PLT VOLUME 6.9 fl (7.5-11.1); PLATELET COUNT 312 K/MM3 (134-434); RDW 17.1 % (11.6-15.6); WHITE BLOOD COUNT 5.9 K/mm3 (4.0-10.0)
--- NOTE | 2016-08-02 08:12 | PN ---
Progress Note, Physician History of Present Illness: LEG PAIN LESS TODAY - Current Medication List Current Medications: Active Medications Acetaminophen (Tylenol -) 650 mg PO Q6H PRN PRN Reason: FEVER OR PAIN Artificial Tears (Artificial Tears) 1 drop OU QID [facility] Last Admin: 08/01/16 21:43 Dose: 1 drop Ascorbic Acid (Vitamin C -) 500 mg PO DAILY [facility] Last Admin: 08/01/16 09:33 Dose: 500 mg Atorvastatin Calcium (Lipitor -) 10 mg PO HS [facility] Last Admin: 08/01/16 21:43 Dose: 10 mg Calcium Carbonate/Cholecalciferol (Os-Dieudonne 500+D -) 1 tab PO DAILY [facility] Last Admin: 08/01/16 09:32 Dose: 1 tab Collagenase (Santyl -) 1 applic TP BID [facility] Last Admin: 08/01/16 21:44 Dose: 1 applic Enoxaparin Sodium (Lovenox -) 60 mg SQ BID [facility] Last Admin: 08/01/16 21:43 Dose: 60 mg Ferrous Sulfate (Feosol -) 325 mg PO BID [facility] Last Admin: 08/01/16 21:43 Dose: 325 mg Lactobacillus Acidophilus (Bacid -) 1 tab PO BID [facility] Last Admin: 08/01/16 21:43 Dose: 1 tab Mesalamine (Canasa Suppository -) 1,000 mg RC BID [facility] Last Admin: 08/01/16 21:43 Dose: 1,000 mg Mirtazapine (Remeron -) 15 mg PO HS [facility] Last Admin: 08/01/16 21:43 Dose: 15 mg Nystatin (Nystop Powder -) 1 applic TP TID [facility] Last Admin: 08/02/16 05:24 Dose: 1 applic Tamsulosin HCl (Flomax -) 0.4 mg PO DAILY [facility] Last Admin: 08/01/16 09:31 Dose: 0.4 mg - Objective Vital Signs: Vital Signs Temperature 97.7 F 08/02/16 06:00 Pulse Rate 91 H 08/02/16 06:00 Respiratory Rate 18 08/02/16 06:00 Blood Pressure 100/58 08/02/16 06:00 O2 Sat by Pulse Oximetry (%) 97 08/01/16 22:00 Cardiovascular: Yes: Regular Rate and Rhythm Respiratory: Yes: Regular, CTA Bilaterally Gastrointestinal: Yes: Normal Bowel Sounds, Soft Labs: CBC, BMP 08/02/16 06:30 INR, PTT INR 1.55 (0.82-1.09) H 07/30/16 06:09 Assessment/Plan - Problems (1) Left leg DVT/PE Assessment/Plan: full dose Lovenox--consider eliquis--- pulm and CTS eval noted for saddle emboli heme eval echo (2) Crohn disease Assessment/Plan: canasa bid for one month no asacol Code(s): K50.90 - CROHN'S DISEASE, UNSPECIFIED, WITHOUT COMPLICATIONS (3) UTI (urinary tract infection) Assessment/Plan: mrsa uti --id f/u noted Code(s): N39.0 - URINARY TRACT INFECTION, SITE NOT SPECIFIED Qualifiers: Urinary tract infection type: acute cystitis Hematuria presence: without hematuria Qualified Code(s): N30.00 - Acute cystitis without hematuria (4) Urinary retention Assessment/Plan: flomax for vesicosphincteric dsynnergia uriary [facility] Code(s): R33.9 - RETENTION OF URINE, UNSPECIFIED (5) HYPOGLYCEMIA Assessment/Plan: Laboratory Tests 07/31/16 07/31/16 07/31/16 06:00 09:08 11:36 POC Glucometer 58 70 Random Glucose 48 L* D 07/31/16 07/31/16 17:46 22:21 POC Glucometer 123 88 Random Glucose MONITOR ENDO (5) CAD Assessment/Plan: cardio echo
[2016-08-02 08:16] LABS: ALK PHOS 121 U/L (45-117); ANION GAP 9 (8-16); BILIRUBIN,TOTAL 0.2 mg/dL (0.2-1.0); CALCIUM 7.4 mg/dL (8.5-10.1); CO2 22 mmol/L (21-32); CREATININE 0.7 mg/dL (0.55-1.02); GLUCOSE,RANDOM 66 mg/dL (74-106); SGOT/AST 26 U/L (15-37); SGPT/ALT 19 U/L (12-78); TOT PROT 4.2 g/dl (6.4-8.2)
[2016-08-02] MEDS: LACTOBACILLUS ACIDOPHILUS 1 EACH TAB (FP) PO SCH ×2 (10:20→21:47)
[2016-08-02] MEDS: ARTIFICIAL TEARS (POLYVINYL ALCOHOL 1.4%) OPTH DROPS OU SCH ×4 (10:20→21:47)
[2016-08-02] MEDS: ASCORBIC ACID 500 MG TABLET (FP) PO SCH (10:21)
[2016-08-02] MEDS: ENOXAPARIN NA (PORCINE) 60 MG/0.6 ML DISP.SYRIN SQ SCH ×2 (10:21→21:47)
[2016-08-02] MEDS: TAMSULOSIN HCL 0.4 MG CAP.ER.24H (FP) PO SCH (10:21)
[2016-08-02] MEDS: FERROUS SO4 325 MG TABLET (FP) PO SCH ×2 (10:21→21:47)
[2016-08-02] MEDS: MESALAMINE 1000 MG/SUPP.RECT SUPP RC SCH ×3 (10:21→22:02)
[2016-08-02] MEDS: CALCIUM 500MG/VIT-D 200 UNITS COMBO TABLET (FP) PO SCH (10:21)
[2016-08-02] MEDS: COLLAGENASE CLOSTRIDIUM HIST. 30 GRAMS TUBE TP SCH ×2 (10:21→21:53)
--- NOTE | 2016-08-02 11:53 | PN ---
Progress Note, Physician History of Present Illness: PULMONARY ALERT,FEELING BETTER,-SOB,-CP - Current Medication List Current Medications: Active Medications Acetaminophen (Tylenol -) 650 mg PO Q6H PRN PRN Reason: FEVER OR PAIN Artificial Tears (Artificial Tears) 1 drop OU QID [facility] Last Admin: 08/02/16 10:20 Dose: 1 drop Ascorbic Acid (Vitamin C -) 500 mg PO DAILY [facility] Last Admin: 08/02/16 10:21 Dose: 500 mg Atorvastatin Calcium (Lipitor -) 10 mg PO HS [facility] Last Admin: 08/01/16 21:43 Dose: 10 mg Calcium Carbonate/Cholecalciferol (Os-Dieudonne 500+D -) 1 tab PO DAILY [facility] Last Admin: 08/02/16 10:21 Dose: 1 tab Collagenase (Santyl -) 1 applic TP BID [facility] Last Admin: 08/02/16 10:21 Dose: 1 applic Enoxaparin Sodium (Lovenox -) 60 mg SQ BID [facility] Last Admin: 08/02/16 10:21 Dose: 60 mg Ferrous Sulfate (Feosol -) 325 mg PO BID [facility] Last Admin: 08/02/16 10:21 Dose: 325 mg Lactobacillus Acidophilus (Bacid -) 1 tab PO BID [facility] Last Admin: 08/02/16 10:20 Dose: 1 tab Mesalamine (Canasa Suppository -) 1,000 mg RC BID [facility] Last Admin: 08/02/16 10:21 Dose: 1,000 mg Mirtazapine (Remeron -) 15 mg PO HS [facility] Last Admin: 08/01/16 21:43 Dose: 15 mg Nystatin (Nystop Powder -) 1 applic TP TID [facility] Last Admin: 08/02/16 05:24 Dose: 1 applic Tamsulosin HCl (Flomax -) 0.4 mg PO DAILY [facility] Last Admin: 08/02/16 10:21 Dose: 0.4 mg - Objective Vital Signs: Vital Signs Temperature 97.7 F 08/02/16 06:00 Pulse Rate 91 H 08/02/16 06:00 Respiratory Rate 18 08/02/16 06:00 Blood Pressure 100/58 08/02/16 06:00 O2 Sat by Pulse Oximetry (%) 97 08/01/16 22:00 Constitutional: Yes: Well Nourished, Calm Eyes: Yes: WNL HENT: Yes: WNL Neck: Yes: Rigid Cardiovascular: Yes: Regular Rate and Rhythm, S1, S2 Respiratory: Yes: CTA Bilaterally Gastrointestinal: Yes: WNL Extremities: Yes: WNL Edema: No Labs: CBC, BMP 08/02/16 06:30 08/02/16 06:30 INR, PTT INR 1.55 (0.82-1.09) H 07/30/16 06:09 Assessment/Plan Problem List - Problems (1) Left leg DVT Code(s): I82.402 - ACUTE EMBOLISM AND THOMBOS UNSP DEEP VEINS OF L LOW EXTREM (2) A-fib Code(s): I48.91 - UNSPECIFIED ATRIAL FIBRILLATION (3) Abdominal pain Code(s): R10.9 - UNSPECIFIED ABDOMINAL PAIN Qualifiers: Abdominal location: generalized Qualified Code(s): R10.84 - Generalized abdominal pain (4) Anemia Code(s): D64.9 - ANEMIA, UNSPECIFIED (5) Hypertension Code(s): I10 - ESSENTIAL (PRIMARY) HYPERTENSION (6) IBD (inflammatory bowel disease) Code(s): K63.89 - OTHER SPECIFIED DISEASES OF INTESTINE (7) Tachycardia Code(s): R00.0 - TACHYCARDIA, UNSPECIFIED (8) Pulmonary embolism and infarction Code(s): I26.99 - OTHER PULMONARY EMBOLISM WITHOUT ACUTE COR PULMONALE Assessment/Plan PLAN: Lovenox 1 mg/kg BID ECHO pending O2 as needed DR MORENO
--- NOTE | 2016-08-02 13:41 | PN ---
Progress Note (short form) - Note Progress Note: pt voiding frost patent c/w current management
[2016-08-02 15:55] LABS: THYROID STIMULATING HORMONE 9.25 uIU/ml (0.358-3.74)
--- NOTE | 2016-08-02 16:17 | PN ---
Progress Note (short form) - Note Progress Note: Patient seen and examined Demies any complaints afvss HEENT: ROSA, EOM Intact Oropharynx: No thrush, No mucositis Neck: Supple Cor: RSR, No murmurs, No gallops Lungs: Clear to P&A Abd: Soft, Normal bowel sounds, No organomegaly Ext:No significant edema Abnormal Lab Results 08/02/16 08/02/16 08/02/16 06:30 06:30 06:30 RBC 2.82 L Hgb 8.5 L Hct 25.4 L RDW 17.1 H MPV 6.9 L Monocytes % 13.0 H Chloride 111 H Random Glucose 66 L D Hemoglobin A1c % 4.4 L Calcium 7.4 L Alkaline Phosphatase 121 H Total Protein 4.2 L Albumin 1.0 L TSH 9.25 H D Current Medications Acetaminophen (Tylenol -) 650 mg PO Q6H PRN PRN Reason: FEVER OR PAIN Artificial Tears (Artificial Tears) 1 drop OU QID [facility] Last Admin: 08/02/16 21:47 Dose: 1 drop Ascorbic Acid (Vitamin C -) 500 mg PO DAILY [facility] Last Admin: 08/02/16 10:21 Dose: 500 mg Atorvastatin Calcium (Lipitor -) 10 mg PO HS [facility] Last Admin: 08/02/16 21:48 Dose: 10 mg Calcium Carbonate/Cholecalciferol (Os-Dieudonne 500+D -) 1 tab PO DAILY [facility] Last Admin: 08/02/16 10:21 Dose: 1 tab Collagenase (Santyl -) 1 applic TP BID [facility] Last Admin: 08/02/16 21:53 Dose: 1 applic Enoxaparin Sodium (Lovenox -) 60 mg SQ BID [facility] Last Admin: 08/02/16 21:47 Dose: 60 mg Ferrous Sulfate (Feosol -) 325 mg PO BID [facility] Last Admin: 08/02/16 21:47 Dose: 325 mg Lactobacillus Acidophilus (Bacid -) 1 tab PO BID [facility] Last Admin: 08/02/16 21:47 Dose: 1 tab Mesalamine (Canasa Suppository -) 1,000 mg RC BID [facility] Last Admin: 08/02/16 22:02 Dose: 1,000 mg Mirtazapine (Remeron -) 15 mg PO HS [facility] Last Admin: 08/02/16 21:47 Dose: 15 mg Nystatin (Nystop Powder -) 1 applic TP TID [facility] Last Admin: 08/03/16 05:42 Dose: 1 applic Tamsulosin HCl (Flomax -) 0.4 mg PO DAILY [facility] Last Admin: 08/02/16 10:21 Dose: 0.4 mg A/P 80-year-old woman, with HTN, HLD, CAD, DEmentia, gi bleed, irritable bowel disease,chronic proctitis, ESBL/MRSA UTI comes in with extensive LLE DVT/B/l PE --lower lobes and sub segmental DVT/PE--on lovenox Normal renal function Elevated ALKP --monitor Elevated INR/PT -- coagulopathy. ? vit. K deficiency . trial of vitamin k anemia: Of chronic disease. hgb 8.4 recent MRSA/ESBL UTI normocytic WBC/platelets --normal Stercoral ulcer iron studies s/o chronic disease B12/folate /TSH--nl protein studies -- nl monitor for bleeding if bleeding will have to consider IVC filter. But suspect anemiaof chronic disease wt. loss-- CT c/a/p -- rectosigmoid proctitis/colitis Splenic cyst --3.1 cm noted since 2011 will d/w dr. tomas
--- NOTE | 2016-08-02 17:21 | CONSULT ---
Consult Consult Specialty:: Cardiology Referred by:: Dr Bhatt Reason for Consultation:: PEs and LE DVT - History of Present Illness History of Present Illness: 80 yo female from [facility], with hx HTN, HLD, CAD s/p stent in 2014 - > no details available to me, depression, recurrent UTIs -. recently d/chani with frost, found with new ASHLEY -. stat dopplers showed left leg DVT -> ER on 07/29/16 where found with b/l PEs -. started on lovenox Patient denies CP or SOB. She further denies palpitations or dizziness. - History Source History Provided By: Patient, Medical Record - Past Medical History TANK PUMPER: Yes: Other (DEMENTIA?) Cardio/Vascular: Yes: CAD, HTN, Hyperlipdemia Gastrointestinal: Yes: GI Bleed, Irritable Bowel Disease, Other (diarrhea Stercoral colitis) Renal/: Yes: Other (Aatonic bladder B/L hydroureteronephrosis Interstitial cystitis) ...: No Infectious Disease: Yes: Other (Urosepsis due to Klebsiella(ESBL)) Additional Medical History: Anal fissure with surgical intervention - Past Surgical History Past Surgical History: Yes: Cholecystectomy - Alcohol/Substance Use Hx Alcohol Use: No - Smoking History Smoking history: Former smoker Have you smoked in the past 12 months: No Aproximately how many cigarettes per day: 60 If you are a former smoker, when did you quit?: YEARS AGO - Social History Usual Living Arrangement: Shelter ADL: Independent History of Recent Travel: Yes ([email or web address] 11/16) Home Medications - Allergies Allergies/Adverse Reactions: Allergies Allergy/AdvReac Type Severity Reaction Status Date / Time linaclotide [From Linzess] Allergy Intermediate Severe Verified 07/20/16 15:36 diarrhea - Home Medications Home Medications: Ambulatory Orders Aa/Hydrolyzed Collagen, Whey [Lps Neutral Flavor Liquid] 30 ml PO BID 07/20/16 Acetaminophen [Pain Relief] 650 mg PO QID 07/20/16 Ascorbic Acid [Vitamin C -] 500 mg PO DAILY 07/20/16 Atorvastatin Ca [Lipitor] 10 mg PO HS 07/20/16 Calcium Carbonate/Vitamin D3 [Oyster Shell 500-Vit D3 200 Tb] 1 each PO DAILY Collagenase Clostridium Hist. [Santyl -] 1 applic TP BID 07/20/16 Dextran 70/Hypromellose/Pf [Artificial Tears Drops] 1 each OP QID 07/20/16 Ferrous Sulfate [Feosol] 325 mg PO BID 07/20/16 Mirtazapine [Remeron -] 15 mg PO HS 07/20/16 Tamsulosin HCl [Flomax] 0.4 mg PO DAILY 07/20/16 Acetaminophen [Tylenol .Regular Strength -] 650 mg PO Q4H PRN #0 tablet Heparin - 5,000 unit SQ BID vial 07/26/16 Mesalamine Suppository [Canasa Suppository -] 1,000 mg RC BID supp 07/26/16 Metronidazole [Flagyl -] 500 mg PO TID tablet 07/26/16 Nystatin Powder [Nystop Powder -] 1 applic TP TID applic 07/26/16 Sulfamethoxazole/Trimethoprim [Bactrim Ds -] 1 tab PO BID #6 tablet 07/26/16 Hypromellose 0.5% Opth Soln [Artificial Tears] 1 drop OU QID 07/29/16 Lactobacillus Acidophilus [Bacid -] 1 each PO BID 07/29/16 Family Disease History - Family Disease History Family History: Denies (premature CAD) Family Disease History: CA: Father (colon), Sister (colon) Review of Systems - Review of Systems Constitutional: reports: Loss of Appetite Eyes: reports: No Symptoms HENT: reports: No Symptoms Neck: reports: No Symptoms Cardiovascular: reports: Edema Respiratory: reports: No Symptoms Musculoskeletal: reports: Muscle Weakness Neurological: reports: No Symptoms Physical Exam Vital Signs: Vital Signs Temperature 98.2 F 08/02/16 14:08 Pulse Rate 90 08/02/16 14:08 Respiratory Rate 16 08/02/16 14:08 Blood Pressure 116/57 08/02/16 14:08 O2 Sat by Pulse Oximetry (%) 96 08/02/16 09:00 Constitutional: Yes: No Distress Eyes: Yes: Conjunctiva Clear HENT: Yes: Atraumatic Neck: Yes: Supple Cardiovascular: Yes: Regular Rate and Rhythm (with ectopy) Respiratory: Yes: CTA Bilaterally Gastrointestinal: Yes: Normal Bowel Sounds, Soft. No: Tenderness Extremities: Yes: Other (warm) Edema: Yes Edema: LLE: Trace, RLE: Trace Peripheral Pulses WNL: Yes Neurological: Yes: Alert Labs: CBC, BMP 08/02/16 06:30 08/02/16 06:30 Imaging - Results Chest X-ray: Report Reviewed, Image Reviewed EKG: Report Reviewed, Image Reviewed Other: Other (tele -. SR, ST with frequent APCs Echo (08/02/16) -> Nl LV size and function, Normal RV, mild MAC/MR, mild TR with PASP 30-40) Assessment/Plan 80 yo female, with the above history, here with left leg DVT and b/l PEs -> patient has been ill. So, etiology is likely having been bed-bound. HD stable, though BP on low side at times Has been mildly tachy 100s-110s (reactive). Tele shows SR, ST with frequent APCs Echo with normal RV, PASP 30-40, nl LV function No evidence of acute cardiac event -. ACS or CHF Elevated TSH Anemia, elevated INR w/o coumadin Rec: Continue anticoagulation Continue lipitor Consider low dose BB in future, if BP allows Ideally, should be on low dose ASA, given CAD -> hx of GIB, anemia, elevated IND w/o coumadin are concerning however Check full TFTs Thanks! We'll follow!
[2016-08-02] MEDS: MIRTAZAPINE 15 MG TABLET (FP) PO SCH (21:47)
[2016-08-02] MEDS: ATORVASTATIN CA 10 MG TABLET (FP) PO SCH (21:48)
[2016-08-03] MEDS: NYSTATIN POWDER 100,000 UNITS/GM - 15 GM TOPICAL POWDER TP SCH ×2 (05:42→13:42)
[2016-08-03 06:26] VITALS: BP 90/54; PULSE 94; TEMP 98.2
--- NOTE | 2016-08-03 07:29 | PN ---
Progress Note (short form) - Note Progress Note: Patient seen and examined Demies any complaints Last Vital Signs Temp Pulse Resp BP Pulse Ox 98.2 F 94 H 18 90/54 100 08/03/16 06:00 08/03/16 06:00 08/03/16 06:00 08/03/16 06:00 08/02/16 20:57 HEENT: ROSA, EOM Intact Oropharynx: No thrush, No mucositis Neck: Supple Cor: RSR, No murmurs, No gallops Lungs: Clear to P&A Abd: Soft, Normal bowel sounds, No organomegaly Ext:No significant edema Abnormal Lab Results 08/02/16 08/02/16 08/02/16 06:30 06:30 06:30 RBC 2.82 L Hgb 8.5 L Hct 25.4 L RDW 17.1 H MPV 6.9 L Monocytes % 13.0 H Chloride 111 H Random Glucose 66 L D Hemoglobin A1c % 4.4 L Calcium 7.4 L Alkaline Phosphatase 121 H Total Protein 4.2 L Albumin 1.0 L TSH 9.25 H D Current Medications Acetaminophen (Tylenol -) 650 mg PO Q6H PRN PRN Reason: FEVER OR PAIN Artificial Tears (Artificial Tears) 1 drop OU QID [facility] Last Admin: 08/02/16 21:47 Dose: 1 drop Ascorbic Acid (Vitamin C -) 500 mg PO DAILY [facility] Last Admin: 08/02/16 10:21 Dose: 500 mg Atorvastatin Calcium (Lipitor -) 10 mg PO HS [facility] Last Admin: 08/02/16 21:48 Dose: 10 mg Calcium Carbonate/Cholecalciferol (Os-Dieudonne 500+D -) 1 tab PO DAILY [facility] Last Admin: 08/02/16 10:21 Dose: 1 tab Collagenase (Santyl -) 1 applic TP BID [facility] Last Admin: 08/02/16 21:53 Dose: 1 applic Enoxaparin Sodium (Lovenox -) 60 mg SQ BID [facility] Last Admin: 08/02/16 21:47 Dose: 60 mg Ferrous Sulfate (Feosol -) 325 mg PO BID [facility] Last Admin: 08/02/16 21:47 Dose: 325 mg Lactobacillus Acidophilus (Bacid -) 1 tab PO BID [facility] Last Admin: 08/02/16 21:47 Dose: 1 tab Mesalamine (Canasa Suppository -) 1,000 mg RC BID [facility] Last Admin: 08/02/16 22:02 Dose: 1,000 mg Mirtazapine (Remeron -) 15 mg PO HS [facility] Last Admin: 08/02/16 21:47 Dose: 15 mg Nystatin (Nystop Powder -) 1 applic TP TID [facility] Last Admin: 08/03/16 05:42 Dose: 1 applic Tamsulosin HCl (Flomax -) 0.4 mg PO DAILY [facility] Last Admin: 08/02/16 10:21 Dose: 0.4 mg A/P 80-year-old woman, with HTN, HLD, CAD, DEmentia, gi bleed, irritable bowel disease,chronic proctitis, ESBL/MRSA UTI comes in with extensive LLE DVT/B/l PE --lower lobes and sub segmental DVT/PE--on lovenox Normal renal function Elevated ALKP --monitor Elevated INR/PT -- coagulopathy. ? vit. K deficiency anemia: Of chronic disease. hgb 8.4 recent MRSA/ESBL UTI normocytic WBC/platelets --normal Stercoral ulcer iron studies s/o chronic disease B12/folate /TSH--nl protein studies -- nl monitor for bleeding if bleeding will have to consider IVC filter. But suspect anemiaof chronic disease wt. loss-- CT c/a/p -- rectosigmoid proctitis/colitis Splenic cyst --3.1 cm noted since 2011
[2016-08-03] MEDS ORDERED: PT OWN MED DRAWER 7, Y5N ONE ×2 (08:59→13:40)
[2016-08-03] MEDS: LACTOBACILLUS ACIDOPHILUS 1 EACH TAB (FP) PO SCH (09:11)
[2016-08-03] MEDS: ARTIFICIAL TEARS (POLYVINYL ALCOHOL 1.4%) OPTH DROPS OU SCH ×2 (09:11→13:42)
[2016-08-03] MEDS: TAMSULOSIN HCL 0.4 MG CAP.ER.24H (FP) PO SCH (09:11)
[2016-08-03] MEDS: FERROUS SO4 325 MG TABLET (FP) PO SCH (09:11)
[2016-08-03] MEDS: MESALAMINE 1000 MG/SUPP.RECT SUPP RC SCH (09:11)
[2016-08-03] MEDS: CALCIUM 500MG/VIT-D 200 UNITS COMBO TABLET (FP) PO SCH (09:12)
[2016-08-03] MEDS: COLLAGENASE CLOSTRIDIUM HIST. 30 GRAMS TUBE TP SCH (09:12)
[2016-08-03] MEDS: ASCORBIC ACID 500 MG TABLET (FP) PO SCH (09:12)
[2016-08-03] MEDS: ENOXAPARIN NA (PORCINE) 60 MG/0.6 ML DISP.SYRIN SQ SCH (09:12)
--- NOTE | 2016-08-03 09:58 | CONS ---
PHYSICAL MEDICINE REHABILITATION CONSULTATION DATE OF CONSULTATION: 08/03/2016 HISTORY OF PRESENT ILLNESS: The patient is a 80-year-old woman with an extensive past medical history for which she has been in and out of the hospital since February 2016, with stays in the prison facility, who was readmitted after she was found to have swelling in the left lower extremity. Patient underwent a Doppler which showed a deep venous thrombosis which was extensive in the left lower extremity. Chest or thorax CTA showed bilateral pulmonary embolism in the left and right lower lobes. Patient was anticoagulated, given Lovenox, and currently is on Lovenox. Blood work showed elevated BUN 21, creatinine 1.0, elevated INR of 1.47, repeat 1.55. Her CBC has been stable with decreased hemoglobin 8.7. WBC is normal at 8.7 and platelet count 350. Albumin is extremely low at 1.0, and TSH was elevated at 9.25. The patient is on Tylenol for pain but does not complain much of pain. She is confused but fairly cooperative and seen at the bedside, not complaining of any shortness of breath. She is also undergoing workup for possible coagulopathy with Hematology. REVIEW OF PAST MEDICAL AND SURGICAL HISTORY: Extensive and includes hypertension, hyperlipidemia, coronary artery disease, dementia, GI bleed, irritable bowel disease. SOCIAL HISTORY: Apparently, she had been living with her family and did have some stairs at home prior to admission back in February, but since then, has been in and out of the prison facility and hospitalized multiple times. She is a former tobacco user and states her ambulation was normal. Prior to her current function, she was seen by Physical Therapy on last recent visit. On July 23, she required modest assist of 2 for ambulating just a few steps. Shuffling and modest assist of 2 for sit to stand. She does not believe she was ambulatory in the prison facility but was only there a few days before transfer back. REVIEW OF SYSTEMS: She denies any headache, any lightheadedness, dizziness. She has no blurry vision, double vision. No nausea, vomiting, difficulty swallowing or chewing. She does have a good appetite and is eating. She has no chest pain, shortness of breath. No abdominal pain. No current bowel or bladder complaints. She has no complaints of pain at rest. No numbness or tingling. PHYSICAL EXAMINATION: General: A frail elderly woman seen lying in bed. She is confused but for the most part cooperative. HEENT: She is normocephalic and atraumatic. Her extraocular muscles appear intact. Neck: Supple. Extremities: She does have tenderness more in the right than the lower extremity currently and does not tolerate dorsiflexion on the right as opposed to the left but no isolated calf tenderness. Neuromuscular: She is awake, alert. She is a poor historian. Did not know the month or why she was admitted to the hospital. Cranial nerves 2-12 grossly intact. She has restriction in range of motion in both shoulders to about 90-100 degrees of flexion, 70-80 degrees of abduction. She lacks about 10-15 degrees of left elbow extension and 5-10 degrees at the right side, at least 4/5 strength in the upper extremities. Negative drop arm. In the lower extremities, 1-2/5 hip girdle strength, 2/5 knee extensors, and again, she does not tolerate range of motion very well on the right ankle. Get her back to just about neutral but not quite. Left ankle: She tolerates dorsiflexion much better. She has normal sensation to light touch. She has scar from a left total knee replacement, healed. No erythema in the lower extremities but warmth. OVERALL IMPRESSION: 1. Deficits in mobility and activities of daily living, multifactorial after multiple hospitalizations and short-term versus long-term care at a prison facility. 2. Severe deconditioning. 3. Pulmonary embolism with extensive left lower extremity deep venous thrombosis. 4. Elevated thyroid stimulating hormone. 5. Workup for coagulopathy with elevated international normalized ratio. 6. Anemia. 7. Dementia. 8. Hypoalbuminemia. 9. Coronary artery disease status post stent. 10. Depression. 11. Recurrent urinary tract infection. 12. History of irritable bowel syndrome. 13. Anal fissure status post surgical intervention. PLAN/SUGGESTION: 1. Physical therapy including mobilization, bed mobility, transfers, gait. 2. Out of bed to chair with assistance. 3. Pulmonary precaution. 4. Cardiac precaution. 5. Dietary management. 6. Hematology workup. 7. DVT prophylaxis, already anticoagulated for treatment of DVT and pulmonary embolism. 8. Disposition: Short-term rehab versus long-term care prison facility. Thank you for this referral. AMELIA KELLY M.D. [id number]
--- NOTE | 2016-08-03 09:59 | DS ---
Physical Examination Vital Signs: Vital Signs Temperature 98.2 F 08/03/16 06:00 Pulse Rate 94 H 08/03/16 06:00 Respiratory Rate 18 08/03/16 06:00 Blood Pressure 90/54 08/03/16 06:00 O2 Sat by Pulse Oximetry (%) 100 08/02/16 20:57 Labs: CBC, BMP 08/02/16 06:30 08/02/16 06:30 Discharge Summary Reason For Visit: DVT MRSA KLEB ESBL Current Active Problems Asymptomatic bacteriuria (Acute) Chronic indwelling Briones catheter (Acute) Hypoglycemia (Acute) Left leg DVT (Acute) Pulmonary embolism and infarction (Acute) Hospital Course: The patient is a year old female from [facility], with a significant past medical history of CAD s/p stent(2013), stage 3 prolapsed hemorrhoids, UTIs , interstitial cystitis, hypertension, hyperlipidemia, depression, who presents to the emergency department complaining of lower leg pain. i saw patient in [place] yesterday and noticed new swelling of both legs and asked stat doppler in ER dopple showed extensive dvt in left leg The patient reports the pain is localized more on the right side of her leg than the left. The patient denies any leg swelling, chest pain, diaphoresis, palpitations, or shortness of breath. The patient denies any nausea, vomiting, diarrhea, constipation, or changes in urination patterns. The patient denies fever, chills, cough, headache, and dizziness. The patient denies any recent travel or sick contacts. cta shows bilateral saddle embolus got lovenox in ER History Source: Medical Record - Past Medical History [employer]: Yes: Other (DEMENTIA?) Cardiovascular: Yes: CAD, HTN, Hyperlipdemia Gastrointestinal: Yes: GI Bleed, Irritable Bowel Disease, Other (diarrehea Stercoral colitis) Renal/: Yes: Other (Aatonic bladder B/L hydroureteronephrosis Interstitial cystitis) Heme/Onc: Yes: Anemia Infectious Disease: Yes: Other (Urosepsis due to Klebsiella(ESBL)) - Past Surgical History Past Surgical History: Yes: Cholecystectomy - Problems (1) Left leg DVT/PE Assessment/Plan: full dose Lovenox--consider eliquis--- pulm and CTS eval noted for saddle emboli heme eval noted---d/w dr ferguson will keep on lovenox and if labs stable switch to eliquis in 10 days echo (2) Crohn disease Assessment/Plan: canasa bid for one month no asacol Code(s): K50.90 - CROHN'S DISEASE, UNSPECIFIED, WITHOUT COMPLICATIONS (3) UTI (urinary tract infection) Assessment/Plan: mrsa uti --id f/u noted Code(s): N39.0 - URINARY TRACT INFECTION, SITE NOT SPECIFIED Qualifiers: Urinary tract infection type: acute cystitis Hematuria presence: without hematuria Qualified Code(s): N30.00 - Acute cystitis without hematuria (4) Urinary retention Assessment/Plan: flomax for vesicosphincteric dsynnergia uriary retention urolgy nayegl lizzy foolow up Code(s): R33.9 - RETENTION OF URINE, UNSPECIFIED (5) HYPOGLYCEMIA Assessment/Plan: Laboratory Tests 07/31/16 07/31/16 07/31/16 06:00 09:08 11:36 POC Glucometer 58 70 Random Glucose 48 L* D 07/31/16 07/31/16 17:46 22:21 POC Glucometer 123 88 Random Glucose MONITOR ENDO (5) CAD Assessment/Plan: cardio noted will momitor labs on ac if stable will consider ASA monitor bp if improves will start BB echo Condition: Improved - Instructions Diet, Activity, Other Instructions: CBC/BMP/PT/PTT EVERY WEEK IF LABS STABLE THEN MAY SWITCH TO ELIQUIS 5 MG BID Referrals: Anjum Bhatti MD [Primary Care Provider] - Disposition: [facility] - Home Medications Comprehensive Discharge Medication List: Ambulatory Orders Aa/Hydrolyzed Collagen, Whey [Lps Neutral Flavor Liquid] 30 ml PO BID 07/20/16 Acetaminophen [Pain Relief] 650 mg PO QID 07/20/16 Ascorbic Acid [Vitamin C -] 500 mg PO DAILY 07/20/16 Atorvastatin Ca [Lipitor] 10 mg PO HS 07/20/16 Calcium Carbonate/Vitamin D3 [Oyster Shell 500-Vit D3 200 Tb] 1 each PO DAILY Collagenase Clostridium Hist. [Santyl -] 1 applic TP BID 07/20/16 Dextran 70/Hypromellose/Pf [Artificial Tears Drops] 1 each OP QID 07/20/16 Ferrous Sulfate [Feosol] 325 mg PO BID 07/20/16 Mirtazapine [Remeron -] 15 mg PO HS 07/20/16 Tamsulosin HCl [Flomax] 0.4 mg PO DAILY 07/20/16 Acetaminophen [Tylenol .Regular Strength -] 650 mg PO Q4H PRN #0 tablet Mesalamine Suppository [Canasa Suppository -] 1,000 mg RC BID supp 07/26/16 Nystatin Powder [Nystop Powder -] 1 applic TP TID applic 07/26/16 Hypromellose 0.5% Opth Soln [Artificial Tears] 1 drop OU QID 07/29/16 Lactobacillus Acidophilus [Bacid -] 1 each PO BID 07/29/16 Enoxaparin [Lovenox -] 60 mg SQ BID disp.syrin 08/03/16 Levothyroxine [Synthroid -] 25 mcg PO DAILY@0700 tablet 08/03/16
[2016-08-03 10:56] LABS: INR 1.44 (0.82-1.09)
[2016-08-03 10:59] LABS: ACTIVATED PTT 46.9 SECONDS (26.9-34.4)
[2016-08-03] MEDS ORDERED: PHYTONADIONE 10 MG/1 ML AMP SQ ONE (11:30)
--- NOTE | 2016-08-03 12:46 | PN ---
Progress Note (short form) - Note Progress Note: No acute events overnight. No CP or SOB. Intake & Output 07/31/16 08/01/16 08/02/16 08/03/16 23:59 23:59 23:59 23:59 Intake Total 6609 687 8314 320 Output Total 1000 1100 1200 300 Balance 400 -560 -200 20 Last Vital Signs Temp Pulse Resp BP Pulse Ox 98.2 F 94 H 18 90/54 100 08/03/16 06:00 08/03/16 06:00 08/03/16 06:00 08/03/16 06:00 08/02/16 20:57 Active Medications Acetaminophen (Tylenol -) 650 mg PO Q6H PRN PRN Reason: FEVER OR PAIN Artificial Tears (Artificial Tears) 1 drop OU QID [facility] Last Admin: 08/03/16 09:11 Dose: 1 drop Ascorbic Acid (Vitamin C -) 500 mg PO DAILY [facility] Last Admin: 08/03/16 09:12 Dose: 500 mg Atorvastatin Calcium (Lipitor -) 10 mg PO [facility] Last Admin: 08/02/16 21:48 Dose: 10 mg Calcium Carbonate/Cholecalciferol (Os-Dieudonne 500+D -) 1 tab PO DAILY [facility] Last Admin: 08/03/16 09:12 Dose: 1 tab Collagenase (Santyl -) 1 applic TP BID [facility] Last Admin: 08/03/16 09:12 Dose: 1 applic Enoxaparin Sodium (Lovenox -) 60 mg SQ BID [facility] Last Admin: 08/03/16 09:12 Dose: 60 mg Ferrous Sulfate (Feosol -) 325 mg PO BID [facility] Last Admin: 08/03/16 09:11 Dose: 325 mg Lactobacillus Acidophilus (Bacid -) 1 tab PO BID [facility] Last Admin: 08/03/16 09:11 Dose: 1 tab Levothyroxine Sodium (Synthroid -) 25 mcg PO DAILY@0700 [facility] Mesalamine (Canasa Suppository -) 1,000 mg RC BID [facility] Last Admin: 08/03/16 09:11 Dose: 1,000 mg Mirtazapine (Remeron -) 15 mg PO HS [facility] Last Admin: 08/02/16 21:47 Dose: 15 mg Nystatin (Nystop Powder -) 1 applic TP TID [facility] Last Admin: 08/03/16 05:42 Dose: 1 applic Tamsulosin HCl (Flomax -) 0.4 mg PO DAILY [facility] Last Admin: 08/03/16 09:11 Dose: 0.4 mg Constitutional: Yes: NAD Eyes: Yes: WNL HENT: Yes: WNL Neck: Yes: Rigid Cardiovascular: Yes: Regular Rate and Rhythm, S1, S2 Respiratory: Yes: CTA Gastrointestinal: Yes: WNL Extremities: Yes: WNL Edema: No Labs: Laboratory Results - last 24 hr 08/02/16 08/02/16 08/02/16 06:30 12:48 17:56 INR PTT (Actin FS) POC Glucometer 101 102 TSH 9.25 H D 08/02/16 08/03/16 21:58 10:25 INR 1.44 H PTT (Actin FS) 46.9 H D POC Glucometer 119 TSH Assessment/Plan Problem List - Problems (1) Left leg DVT Code(s): I82.402 - ACUTE EMBOLISM AND THOMBOS UNSP DEEP VEINS OF L LOW EXTREM (2) A-fib Code(s): I48.91 - UNSPECIFIED ATRIAL FIBRILLATION (3) Abdominal pain Code(s): R10.9 - UNSPECIFIED ABDOMINAL PAIN Qualifiers: Abdominal location: generalized Qualified Code(s): R10.84 - Generalized abdominal pain (4) Anemia Code(s): D64.9 - ANEMIA, UNSPECIFIED (5) Hypertension Code(s): I10 - ESSENTIAL (PRIMARY) HYPERTENSION (6) IBD (inflammatory bowel disease) Code(s): K63.89 - OTHER SPECIFIED DISEASES OF INTESTINE (7) Tachycardia Code(s): R00.0 - TACHYCARDIA, UNSPECIFIED (8) Pulmonary embolism and infarction Code(s): I26.99 - OTHER PULMONARY EMBOLISM WITHOUT ACUTE COR PULMONALE Assessment/Plan Lovenox 60 mg BID O2 as needed D/C planning top [facility] Dr Rivero Problem List - Problems (1) Left leg DVT Code(s): I82.402 - ACUTE EMBOLISM AND THOMBOS UNSP DEEP VEINS OF L LOW EXTREM (2) A-fib Code(s): I48.91 - UNSPECIFIED ATRIAL FIBRILLATION (3) Abdominal pain Code(s): R10.9 - UNSPECIFIED ABDOMINAL PAIN Qualifiers: Abdominal location: generalized Qualified Code(s): R10.84 - Generalized abdominal pain (4) Anemia Code(s): D64.9 - ANEMIA, UNSPECIFIED (5) Hypertension Code(s): I10 - ESSENTIAL (PRIMARY) HYPERTENSION (6) IBD (inflammatory bowel disease) Code(s): K63.89 - OTHER SPECIFIED DISEASES OF INTESTINE (7) Tachycardia Code(s): R00.0 - TACHYCARDIA, UNSPECIFIED (8) Pulmonary embolism and infarction Code(s): I26.99 - OTHER PULMONARY EMBOLISM WITHOUT ACUTE COR PULMONALE
[2016-08-04] MEDS ORDERED: LEVOTHYROXINE NA 25 MCG TABLET (FP) PO SCH (07:00)
== END 2016-08-03 15:21 | DRG 299 ==
LOC: JER 19:49 → JERBED 21:47 → J4S 07-30 16:19
PROVIDERS: ADMIT Family Medicine; ATTEND Family Medicine
DX: I82.412 Acute embolism and thrombosis of left femoral vein (principal); I26.92 Saddle embolus of pulmonary artery without acute cor pulmonale; K50.90 Crohn's disease, unspecified, without complications; N39.0 Urinary tract infection, site not specified; D68.9 Coagulation defect, unspecified; I82.432 Acute embolism and thrombosis of left popliteal vein; I48.91 Unspecified atrial fibrillation; D64.9 Anemia, unspecified; I10 Essential (primary) hypertension; R00.0 Tachycardia, unspecified; R10.9 Unspecified abdominal pain; I25.10 Atherosclerotic heart disease of native coronary artery without angina pectoris; Z98.61 Coronary angioplasty status; E78.5 Hyperlipidemia, unspecified; R33.9 Retention of urine, unspecified; Z87.891 Personal history of nicotine dependence; F32.9 Major depressive disorder, single episode, unspecified
CPT/HCPCS: 36415; 71010-TC; 71275-TC; 80053; 81003; 81015; 82728; 83036; 83540; 83550; 83605; 83735; 84443; 85025; 85610; 85651; 85730; 86850; 86900; 86901; 87040; 87086; 87186; 93005; 93010; 93306-TC; 93970-TC; 99285-25

== ENCOUNTER 2017-02-20 05:25 | Emergency (ER) | payer OTHER, MEDICARE ==
--- NOTE | 2017-02-20 05:27 | PDOC ---
History of Present Illness - General Chief Complaint: Injury Stated Complaint: FALL History Source: Patient Exam Limitations: No Limitations - History of Present Illness Initial Comments: 02/20/17 05:30 This patient is an 81 yo F with a history of HTN, HLD, CAD s/p PCI and stent 2013, UTI with resistant organism, DVT/saddle PE on coumadin (treated in July 2016) who presents to the ER s/p fall at home Pt was in her usual state of health, went to the bathroom without assistance. She tripped and fell coming out of the bathroom No LOC No amnesia Of note, pt had an admission to an outside hospital for hypotension. Per family member, the cause was thought to be due to her medication combination. She then was placed in rehab x 1 month and recently returned home from rehab. She is ambulatory with a walker PMH: as above PSH: Stent (2013), Rectal fistula, left knee replacement, cholecystectomy(1993) Meds: Coumadin, ALL: Linaclotide Social History: Former smoker. Denies alcohol or drug use. 02/20/17 05:42 GENERAL/CONSTITUTIONAL: No: fever, chills, weakness, loss of appetite. HEAD, EYES, EARS, NOSE AND THROAT: No: change in vision, ear pain, discharge, sore throat, throat swelling. CARDIOVASCULAR: No: chest pain, lightheadedness, palpitations, syncope RESPIRATORY: No: cough, shortness of breath, wheezing. GASTROINTESTINAL: No: nausea, vomiting, diarrhea, abdominal pain. GENITOURINARY: No: dysuria, hematuria, frequency, urgency, flank pain. MUSCULOSKELETAL: No: back pain, neck pain, joint pain, muscle swelling or pain SKIN: Yes: forehead abrasion, right cheek bruise No: lesions, pallor, rash or easy bruising. NEUROLOGIC: No: headache, vertigo, paresthesias, weakness ENDOCRINE: No: unexplained weight gain or loss HEMATOLOGIC/LYMPHATIC: No: anemia, easy bleeding, swelling nodes. GENERAL: The patient is in no acute distress, walked in to the ER with the assistance of a walker with nephew. HEAD: (+) head trauma EYES: PERRLA, EOMI, sclera anicteric, conjunctiva clear. ENT: Ears normal, nares patent, oropharynx clear without exudates. Moist mucous membranes. No hemotympanum NECK: Normal range of motion, No midline tenderness to palpation LUNGS: Breath sounds equal, clear to auscultation bilaterally. No wheezes, and no crackles. HEART: Regular rate and rhythm, normal S1 and S2 without murmur, rub or gallop. ABDOMEN: Soft, nontender, normoactive bowel sounds. No guarding, no rebound. No masses palpable. EXTREMITIES: Normal range of motion, no edema. No clubbing or cyanosis. No erythema, or tenderness. NEUROLOGICAL: Cranial nerves II through XII grossly intact. Normal speech. No focal neurological deficits. MUSCULOSKELETAL: Back non-tender to palpation, no CVA tenderness SKIN: (+) Right forehead skin abrasion measuring 1.2 cm in diameter, right fore arm skin tear measuring 1 cm in length, right cheek bruise 02/20/17 05:50 Past History - Past Medical History Allergies/Adverse Reactions: Allergies Allergy/AdvReac Type Severity Reaction Status Date / Time linaclotide [From Linzess] Allergy Intermediate Severe Verified 07/20/16 15:36 diarrhea Home Medications: Ambulatory Orders Aspirin [Aspirin Ec] 81 mg PO 2 TABS AM tablet 01/09/15 Aa/Hydrolyzed Collagen, Whey [Lps Neutral Flavor Liquid] 30 ml PO BID 07/20/16 Ascorbic Acid [Vitamin C -] 500 mg PO DAILY 07/20/16 Atorvastatin Ca [Lipitor] 10 mg PO HS 07/20/16 Calcium Carbonate/Vitamin D3 [Oyster Shell 500-Vit D3 200 Tb] 1 each PO DAILY Collagenase Clostridium Hist. [Santyl -] 1 applic TP BID 07/20/16 Dextran 70/Hypromellose/Pf [Artificial Tears Drops] 1 each OP QID 07/20/16 Ferrous Sulfate [Feosol] 325 mg PO BID 07/20/16 Mirtazapine [Remeron -] 15 mg PO HS 07/20/16 Tamsulosin HCl [Flomax] 0.4 mg PO DAILY 07/20/16 Acetaminophen [Tylenol .Regular Strength -] 650 mg PO Q4H PRN #0 tablet Mesalamine Suppository [Canasa Suppository -] 1,000 mg RC BID supp 07/26/16 Nystatin Powder [Nystop Powder -] 1 applic TP TID applic 07/26/16 Hypromellose 0.5% Opth Soln [Artificial Tears] 1 drop OU QID 07/29/16 Lactobacillus Acidophilus [Bacid -] 1 each PO BID 07/29/16 Levothyroxine [Synthroid -] 25 mcg PO DAILY@0700 tablet 08/03/16 Warfarin Sodium [Coumadin] 6 mg PO DAILY 02/20/17 Anemia: No Asthma: No Cancer: No Cardiac Disorders: Yes (CAD) CVA: No COPD: No CHF: No Dementia: No Diabetes: No GI Disorders: Yes (REFLUX, HIATAL HERNIA, /rectal ulcerations/Colitis) Disorders: Yes (INTERSTITIAL CYSTITIS, INCONTINENCE) HTN: Yes (DX 2002) Hypercholesterolemia: Yes (DX 2002) Liver Disease: No Psychiatric Problems: Yes (depression) Seizures: No Thyroid Disease: No - Surgical History Abdominal Surgery: No Cardiac Surgery: Yes (STENT 2013) Cholecystectomy: Yes (LAP [id number] BILE DUCT) GI Surgery: Yes (RECTAL FISTULA) Lung Surgery: No Neurologic Surgery: No Orthopedic Surgery: Yes (LEFT KNEE REPLACEMENT) - Psycho/Social/Smoking Cessation Hx Anxiety: No Suicidal Ideation: No Smoking History: Former smoker Have you smoked in the past 12 months: No Number of Cigarettes Smoked Daily: 60 If you are a former smoker, when did you quit?: YEARS AGO Hx Alcohol Use: No Drug/Substance Use Hx: No Substance Use Type: None Hx Substance Use Treatment: No Medical Decision Making - Medical Decision Making 02/20/17 05:47 Given patient's age and comorbidities will do basic labs Given patient is anti coagulated, will do CT head Pt will be observed (er vs. floors) prior to discharge to home 02/20/17 05:52 Pt son who is health care proxy does not want her placed on observation I have explained to this patient's family member who is present (nephew) the reason that we observe patients is due to the small risk of delayed bleeding related to Coumadin Will send INR only PT has no chest pain, no dizziness, no other complaints 02/20/17 06:45 CT demonstrates: Brain parenchyma is normal with no mass or hematoma No midline shift some lucency in th eperi ventricular matter ventricles are mildly prominent No fracture 02/20/17 06:51 PT signed out to Dr Jennings pending INR Pt has strong family support They have been counselled on proper assessment of this patient and reasons for return to the ER *DC/Admit/Observation/Transfer Diagnosis at time of Disposition: Skin tear Fall from standing Qualifiers: Encounter type: initial encounter Qualified Code(s): W19.XXXA - Unspecified fall, initial encounter Head trauma Qualifiers: Encounter type: initial encounter Qualified Code(s): S09.90XA - Unspecified injury of head, initial encounter - Discharge Dispostion Disposition: HOME Condition at time of disposition: Good Admit: No - Patient Instructions Printed Discharge Instructions: DI for Closed Head Injury, DI for Avulsion Laceration (Not Requiring Sutures) Additional Instructions: Ms. Gomez, Thank you for coming in to the ER today. Please monitor Ms. Gomez for any changes in her mental status - increased sleepiness, confusion, changes in mental status If this happens, you must return to the ER immediately Please apply Neosporin or Bacitracin to your wounds to prevent infection
[2017-02-20 05:33] VITALS: BP 105/65; PULSE 95; TEMP 98.2; BMI 29.1
[2017-02-20 07:10] LABS: INR 1.39 (0.82-1.09); PROTHROMBIN TIME (PATIENT) 15.4 SEC (9.98-11.88)
--- NOTE | 2017-02-20 07:16 | PDOC ---
*Physical Exam - Vital Signs Last Vital Signs Temp Pulse Resp BP Pulse Ox 98.2 F 95 H 20 105/65 99 02/20/17 05:30 02/20/17 05:30 02/20/17 05:30 02/20/17 05:30 02/20/17 05:30 ED Treatment Course - ADDITIONAL ORDERS Additional order review: Laboratory Results 02/20/17 05:57 INR 1.39 H Medical Decision Making - Medical Decision Making 02/20/17 07:14 Pt signed out to me as patient on comadin s/p fall without LOC. Patient and son are insisting on taking the patient home. Head CT is negative. PAtient signed out pending INR, which is 1.3. Will discharge home. *DC/Admit/Observation/Transfer Diagnosis at time of Disposition: Skin tear Fall from standing Qualifiers: Encounter type: initial encounter Qualified Code(s): W19.XXXA - Unspecified fall, initial encounter Head trauma Qualifiers: Encounter type: initial encounter Qualified Code(s): S09.90XA - Unspecified injury of head, initial encounter - Discharge Dispostion Condition at time of disposition: Good - Referrals - Patient Instructions Printed Discharge Instructions: DI for Closed Head Injury, DI for Avulsion Laceration (Not Requiring Sutures) Additional Instructions: Ms. Gomez, Thank you for coming in to the ER today. Please monitor Ms. Gomez for any changes in her mental status - increased sleepiness, confusion, changes in mental status If this happens, you must return to the ER immediately Please apply Neosporin or Bacitracin to your wounds to prevent infection - Post Discharge Activity
== END 2017-02-20 07:20 | disposition home or self-care (01) ==
LOC: FER 05:25
DX: S51.811A Laceration without foreign body of right forearm, initial encounter (principal); S09.90XA Unspecified injury of head, initial encounter; W18.39XA Other fall on same level, initial encounter; Y93.89 Activity, other specified; Y92.002 Bathroom of unspecified non-institutional (private) residence as the place of occurrence of the external cause; I25.10 Atherosclerotic heart disease of native coronary artery without angina pectoris; Z95.5 Presence of coronary angioplasty implant and graft; Z96.652 Presence of left artificial knee joint; Z79.01 Long term (current) use of anticoagulants; I10 Essential (primary) hypertension; F32.9 Major depressive disorder, single episode, unspecified
CPT/HCPCS: 36415; 70450-TC; 85610; 99282-25